=== PATIENT | female | born 1995 | race Caucasian/White ===

== ENCOUNTER → 2020-10-18 14:24 | Outpatient (BNVA) | payer MEDICAID, SELFPAY | PROVIDERS: PCP Registered Nurse Community Health; Visit Provider Advanced Practice Midwife | DX: Z03.73 Encounter for suspected fetal anomaly ruled out (principal); N92.6 Irregular menstruation, unspecified | CPT/HCPCS: 81025; 99202 ==

== ENCOUNTER 2020-10-22 10:10 | Outpatient (REF) | payer MEDICAID, SELFPAY ==
--- NOTE | 2020-10-22 10:15 | US_ITS ---
EXAMINATION: US OBSTETRICAL CLINICAL INFORMATION: 25-year-old at 19.0 weeks of gestation Suspected anomaly Unknown LMP BMI: 38.5 COMPARISON: None in this TECHNIQUE: Real-time transabdominal ultrasound was performed using C1-5 megahertz transducer. FINDINGS: A single, active, fetus is seen in transverse presentation. The placenta is posterior without previa, and the amniotic fluid volume is wnl. MEASUREMENTS: 1. Biparietal Diameter: 4.1 cm; 18.3 wks 2. Occipital Frontal Diameter: 5.8 cm 3. Head Circumference: 16.0 cm; 18.6 wks 4. Abdominal Circumference: 13.3 cm; 18.6 wks 5. Femur Length: 3.1 cm; 19.5 wks 6. Humerus Length: 3.1 cm; 20.3 wks 7. Tibia Length: 2.6 cm; 19.1 wks 8. Ulna Length: 2.98 cm; 21.1 wks 9. Lateral ventricle: 0.83 cm 10. Cerebellum: 2.0 cm; 20.5 wks 11. Cisterna Magna: 0.25 cm 12. Nuchal Fold: 4.0 mm 13. Heart Rate: 150 beats per minute Rt ovary: normal Lt ovary: normal Cervical length 3.6 cm on T/A. GESTATIONAL AGE: 1. Established GA: N/A wks 2. GA from [facility]: 19.0 wks ESTIMATED DATE OF DELIVERY: 1. Established CESAR: N/A 2. CESAR from [facility]: 03/18/2021 ANATOMY: The anatomic survey was incomplete due to position. Views of the placental cord insertion, four-chamber view, ventricular septum, LVOT, 3 vessel trachea, spine were suboptimal. The visualized anatomy includes but not limited to: 1. Cranium: Normal 2. Intracranial anatomy: cavum septum pellucidi, lateral ventricles, choroid plexus, cerebellum, posterior fossa, third and fourth ventricles. 3. face: orbits, lip/palate, profile, nasal bone 4. Heart: Limited cardiac anatomy due to position. The views of RVOT, aortic and ductal arches, situs and diaphragm are within normal limits. 5. Diaphragm: Normal 6. Abdominal wall: Normal 7. Cord Insertion: Normal 8. Spine: Unable to visualize due to position 9. Stomach: Normal size and shape 10. Right Kidney: Normal 11. Left Kidney: Normal 12. 3 vessel cord: Normal 13. Upper extremity: Open hands, fifth digit. 14. Lower extremity: Tibia, fibula, bilateral feet. 15. Bladder: Normal 16. Genitalia: Female, patient aware US/US OB /maternal detail IMPRESSION: 1. Single, active fetus with biometry consistent with 19.0 weeks of gestation. The best CESAR is 03/18/2021 based on today's exam. 2. Limited anatomy due to position as noted above. No abnormalities were seen in visualized anatomy. DISCUSSION: I reviewed today's ultrasound findings. We discussed the limitations of ultrasound in diagnosing aneuploidy and other congenital abnormalities. I reviewed the differences between screening test and diagnostic test. Amniocentesis was discussed and declined. She was informed that the baseline incidence of congenital abnormalities is approximately 3-5%. Not all these conditions are diagnosable in utero. Serum aneuploidy screening was offered and accepted. The blood sample was drawn today. RECOMMENDATIONS: 1. Follow-up in 3 weeks (scheduled). Thank you for allowing me to participate in her care. Visiting time 20 minutes. Majority of this visit was spent reviewing and discussing her care.
== END 2020-10-22 10:11 | disposition home or self-care (01) ==
LOC: HO.US 10:10
PROVIDERS: PCP Registered Nurse Community Health; Visit Provider Advanced Practice Midwife
DX: Z36.3 Encounter for antenatal screening for malformations (principal); N92.6 Irregular menstruation, unspecified; R10.2 Pelvic and perineal pain
CPT/HCPCS: 76811

== ENCOUNTER → 2020-10-25 14:00 | Outpatient (BNVA) | payer MEDICAID, SELFPAY | PROVIDERS: Visit Provider Advanced Practice Midwife | DX: Z76.89 Persons encountering health services in other specified circumstances (principal) | CPT/HCPCS: 99212 ==

== ENCOUNTER 2020-11-08 08:48 | Outpatient (REF) | payer MEDICAID, SELFPAY ==
[2020-11-08 13:11] LABS: Basophils Percent Auto 0.2 % (0-2); Eosinophils Absolute Auto 0.1 X10*3/uL (0.0-0.4); Eosinophils Percent Auto 1.2 % (0-4); Hematocrit 33.8 % (37-47); Imm Gran Abs Auto 0.03 X10*3/uL (0.00-0.03); Imm Gran Pct Auto 0.5 % (0.0-0.4); Lymphocytes Absolute Auto 1.2 X10*3/uL (1.2-4.9); Lymphocytes Percent Auto 18.5 % (20-40); Mean Corpuscular HGB Conc 32.5 g/dl (31.0-35.0); Mean Corpuscular Hemoglobin 29.3 pg (27.0-33.0); Mean Corpuscular Volume 89.9 fL (80-98); Mean Platelet Volume 11.2 fL (9.4-12.3); Monocytes Absolute Auto 0.4 X10*3/uL (0.1-1.2); Monocytes Percent Auto 6.1 % (2-11); Neutrophils Absolute Auto 4.8 X10*3/uL (2.0-8.3); Neutrophils Percent Auto 73.5 % (45-73); Platelet Count 292 X10*3/uL (160-400); Red Blood Count 3.76 X10*6/uL (4.20-5.50); Red Cell Distribution Width 13.6 % (11.0-16.0); White Blood Count 6.6 X10*3/uL (4.8-10.8)
[2020-11-08 13:12] LABS: MANUAL DIFF FLAG NO
[2020-11-08 14:04] LABS: Glucose 1 Hour PP 50gm Dose 90 mg/dL (60-140)
[2020-11-08 14:11] LABS: Syphilis Screen Nonreactive (Nonreactive)
[2020-11-08 18:22] LABS: Amphetamine Screen Urine Not Detected (Not Detect); Barbiturates, Urine Not Detected (Not Detect); Benzodiazepines Screen Urine Not Detected (Not Detect); Cannabinoid Screen Urine Not Detected (Not Detect); Cocaine Screen Urine Not Detected (Not Detect); Opiate Screen Urine Not Detected (Not Detect); Phencyclidine Screen Urine Not Detected (Not Detect)
[2020-11-09 09:06] LABS: Rubella IgG Antibody 0.93 Index
[2020-11-09 09:11] LABS: Hepatitis B Surface Antigen Negative (Negative); ~HepC Num1 0.07 S/CO (0.00-0.79); ~Hepatitis C Antibody Nonreactive (Nonreactive)
[2020-11-09 09:22] LABS: HIV AB/AG Nonreactive (Nonreactive); HIV Num 1 0.37 S/CO (0.00-0.99)
[2020-11-09 09:38] LABS: BV Int Neg Control Negative (Negative); BV Int Pos Control Positive (Positive)
[2020-11-09 12:57] LABS: C. trachomatis RNA TMA NOT DETECTED (NOT DETECTED); N. gonorrhoeae RNA TMA NOT DETECTED (NOT DETECTED)
[2020-11-27 03:13] LABS: HPV 16 RNA NOT DETECTED (NOT DETECTED); HPV mRNA E6/E7 rflx Detected (Not Detected)
== END 2020-11-08 08:49 | disposition home or self-care (01) ==
LOC: HO.LAB 08:48
PROVIDERS: Advanced Practice Midwife; Visit Provider Advanced Practice Midwife
DX: O34.219 Maternal care for unspecified type scar from previous cesarean delivery (principal); Z3A.26 26 weeks gestation of pregnancy; Z87.891 Personal history of nicotine dependence
CPT/HCPCS: 36415; 80307; 81003; 85025; 86762; 86780; 86787; 86803; 86850; 86900; 86901; 87086; 87340; 87389; 87480; 87491; 87510; 87591; 87624; 87625; 87660; 88141; 88142; 99212

== ENCOUNTER 2020-11-12 09:48 | Outpatient (REF) | payer MEDICAID, SELFPAY ==
--- NOTE | 2020-11-12 | US_ITS ---
EXAMINATION: US OBSTETRICAL CLINICAL INFORMATION: 25-year-old at 22.0 weeks of gestation Incomplete survey BMI 38.5 COMPARISON: 10/22/2020 TECHNIQUE: Real-time transabdominal ultrasound was performed using C1-5 megahertz transducer. FINDINGS: A single, active, fetus is seen in vertex presentation. The placenta is posterior without previa, and the amniotic fluid volume is wnl. MEASUREMENTS: 1. Biparietal Diameter: 4.7 cm; 20.3 wks 2. Occipital Frontal Diameter: 6.8 cm 3. Head Circumference: 18.9 cm; 21.2 wks 4. Abdominal Circumference: 17.6 cm; 22.4 wks 5. Femur Length: 4.0 cm; 23.0 wks 6. Humerus Length: 3.8 cm; 23.3 wks 7. Tibia Length: 3.5 cm; 23.1 wks 8. Ulna Length: 3.5 cm; 23.3 wks 9. Lateral ventricle: 0.73 cm 10. Cerebellum: 2. cm; 21.6 wks 11. Cisterna Magna: 0.6 cm 12. Nuchal Fold: N/A mm 13. Heart Rate: 150 beats per minute Rt ovary: normal Lt ovary: normal Cervical length 4.7 cm on T/A. GESTATIONAL AGE: 1. Established GA: 22.0 wks 2. GA from [facility]: 21.6 wks ESTIMATED DATE OF DELIVERY: 1. Established CESAR: 03/18/2021 2. CESAR from [facility]: 03/19/2021 ANATOMY: The visualized anatomy includes but not limited to: 1. Cranium: Normal 2. Intracranial anatomy: cavum septum pellucidi, lateral ventricles, choroid plexus, cerebellum, posterior fossa, third and fourth ventricles. 3. face: orbits, lip/palate, profile, nasal bone 4. Heart: four-chamber view of the heart, ventricular septum, foramen ovale, pulmonary vein, left and right outflow tracts, three-vessel view, 3 vessel trachea view, aortic and ductal arches, situs.. 5. Diaphragm: Normal 6. Abdominal wall: Normal 7. Cord Insertion: Normal 8. Spine: Cervical, thoracic, lumbar, sacral. 9. Stomach: Normal size and shape 10. Right Kidney: Normal 11. Left Kidney: Normal 12. 3 vessel cord: Normal 13. Upper extremity: Open hands, fifth digit. 14. Lower extremity: Tibia, fibula, bilateral feet. 15. Bladder: Normal 16. Genitalia: Female, patient aware US/US OB /maternal detail IMPRESSION: 1. Single, living, intrauterine with appropriate biometry. 2. Normal survey DISCUSSION: I reviewed today's ultrasound findings. We discussed the limitations of ultrasound in diagnosing aneuploidy and other congenital abnormalities. I reviewed the differences between screening test and diagnostic test. Amniocentesis was discussed and declined. RECOMMENDATIONS: No further ultrasound has been scheduled. Thank you for allowing me to participate in her care.
== END 2020-11-12 09:49 | disposition home or self-care (01) ==
LOC: HO.US 09:48
PROVIDERS: Visit Provider Advanced Practice Midwife
DX: O35.9XX0 Maternal care for (suspected) fetal abnormality and damage, unspecified, not applicable or unspecified (principal); Z3A.22 22 weeks gestation of pregnancy
CPT/HCPCS: 76811

== ENCOUNTER → 2020-12-06 09:13 | Outpatient (BNVA) | payer MEDICAID, SELFPAY | PROVIDERS: Visit Provider Obstetrics & Gynecology | DX: Z34.90 Encounter for supervision of normal pregnancy, unspecified, unspecified trimester (principal) | CPT/HCPCS: 81003; 99212 ==

== ENCOUNTER → 2020-12-24 15:34 | Outpatient (BNVA) | payer MEDICAID, SELFPAY | PROVIDERS: Visit Provider Obstetrics & Gynecology | DX: Z34.90 Encounter for supervision of normal pregnancy, unspecified, unspecified trimester (principal) | CPT/HCPCS: 99212 ==

== ENCOUNTER 2021-01-04 09:19 | Outpatient (REF) | payer MEDICAID, SELFPAY ==
[2021-01-04 10:00] LABS: MANUAL DIFF FLAG NO
[2021-01-04 10:06] LABS: Basophils Percent Auto 0.2 % (0-2); Eosinophils Absolute Auto 0.1 X10*3/uL (0.0-0.4); Eosinophils Percent Auto 1.2 % (0-4); Hematocrit 33.1 % (37-47); Hemoglobin 10.8 g/dl (12.0-16.0); Imm Gran Abs Auto 0.01 X10*3/uL (0.00-0.03); Imm Gran Pct Auto 0.2 % (0.0-0.4); Lymphocytes Absolute Auto 1.1 X10*3/uL (1.2-4.9); Lymphocytes Percent Auto 19.7 % (20-40); Mean Corpuscular HGB Conc 32.6 g/dl (31.0-35.0); Mean Platelet Volume 11.1 fL (9.4-12.3); Monocytes Absolute Auto 0.4 X10*3/uL (0.1-1.2); Monocytes Percent Auto 7.6 % (2-11); Neutrophils Percent Auto 71.1 % (45-73); Platelet Count 264 X10*3/uL (160-400); Red Blood Count 3.72 X10*6/uL (4.20-5.50); Red Cell Distribution Width 13.3 % (11.0-16.0); White Blood Count 5.7 X10*3/uL (4.8-10.8)
[2021-01-05 08:31] LABS: Syphilis Screen Nonreactive (Nonreactive)
[2021-01-05 20:37] LABS: C. trachomatis RNA TMA NOT DETECTED (NOT DETECTED); N. gonorrhoeae RNA TMA NOT DETECTED (NOT DETECTED)
== END 2021-01-04 09:20 | disposition home or self-care (01) ==
LOC: HO.LAB 09:19
PROVIDERS: Visit Provider Obstetrics & Gynecology
DX: Z34.83 Encounter for supervision of other normal pregnancy, third trimester (principal); Z11.3 Encounter for screening for infections with a predominantly sexual mode of transmission
CPT/HCPCS: 36415; 85025; 86780; 87086; 87491; 87591

== ENCOUNTER → 2021-01-28 10:20 | Outpatient (BNVA) | payer MEDICAID, SELFPAY | PROVIDERS: Visit Provider Obstetrics & Gynecology | DX: Z34.90 Encounter for supervision of normal pregnancy, unspecified, unspecified trimester (principal); Z3A.33 33 weeks gestation of pregnancy | CPT/HCPCS: 81003; 90471; 90715; 99212 ==

== ENCOUNTER 2021-02-18 15:00 | Outpatient (REF) | payer MEDICAID, SELFPAY ==
[2021-02-19 03:29] LABS: CT PCR NOT DETECTED (Not Detect.); NG PCR NOT DETECTED (Not Detect.)
== END 2021-02-18 15:01 | disposition home or self-care (01) ==
LOC: HO.LAB 15:00
PROVIDERS: Visit Provider Advanced Practice Midwife
DX: O09.292 Supervision of pregnancy with other poor reproductive or obstetric history, second trimester (principal); O34.219 Maternal care for unspecified type scar from previous cesarean delivery; Z86.32 Personal history of gestational diabetes
CPT/HCPCS: 81003; 87081; 87491; 87591; 99212

== ENCOUNTER 2021-02-22 10:39 | Outpatient (REF) | payer MEDICAID, SELFPAY ==
[2021-02-22 13:40] LABS: Glucose 1 Hour 113 mg/dL
== END 2021-02-22 10:40 | disposition home or self-care (01) ==
LOC: HO.LAB 10:39
PROVIDERS: Obstetrics & Gynecology; Absent Provider Advanced Practice Midwife; PCP Registered Nurse Community Health; Visit Provider Advanced Practice Midwife
DX: Z34.83 Encounter for supervision of other normal pregnancy, third trimester (principal)
CPT/HCPCS: 36415; 82951

== ENCOUNTER → 2021-03-01 10:50 | Outpatient (BNVA) | payer MEDICAID, SELFPAY | PROVIDERS: PCP Registered Nurse Community Health; Visit Provider Obstetrics & Gynecology | DX: Z34.93 Encounter for supervision of normal pregnancy, unspecified, third trimester (principal); Z3A.37 37 weeks gestation of pregnancy | CPT/HCPCS: 99212 ==

== ENCOUNTER → 2021-03-07 10:45 | Outpatient (BNVA) | payer MEDICAID, SELFPAY | PROVIDERS: Visit Provider Obstetrics & Gynecology | DX: Z13.89 Encounter for screening for other disorder (principal) | CPT/HCPCS: 99212 ==

== ENCOUNTER → 2021-03-21 14:48 | Outpatient (BNVA) | payer MEDICAID, SELFPAY | PROVIDERS: Visit Provider Obstetrics & Gynecology | DX: Z13.89 Encounter for screening for other disorder (principal) | CPT/HCPCS: 99212 ==

== ENCOUNTER 2021-04-20 10:23 | Outpatient (REF) | payer MEDICAID, SELFPAY | END 2021-04-20 10:24 | disposition home or self-care (01) | LOC: HO.LAB 10:23 | PROVIDERS: Visit Provider Obstetrics & Gynecology | DX: R87.610 Atypical squamous cells of undetermined significance on cytologic smear of cervix (ASC-US) (principal); R87.810 Cervical high risk human papillomavirus (HPV) DNA test positive | CPT/HCPCS: 57456; 88305; 99212 ==

== ENCOUNTER → 2021-04-27 10:43 | Outpatient (BNVA) | payer MEDICAID, SELFPAY | PROVIDERS: Visit Provider Obstetrics & Gynecology ==

== ENCOUNTER 2023-09-22 06:06 | Emergency (ER) | payer MEDICAID, SELFPAY ==
--- NOTE | ~2023-09-22 | US_ITS ---
EXAMINATION:US OB pelvic and transvaginal CLINICAL INFORMATION: Reason for Exam left pelvic pain, +, concerned for pregnan COMPARISON: No priors available. LMP: 08/11/2023 FINDINGS: UTERUS: The uterus is anteverted. Size: 6 x 4.5 x 5.7 cm. Uterine mass: There is no uterine mass. Cervix: There are nabothian cysts otherwise Grossly unremarkable. Endometrium: No ultrasound evidence of endometrial lesion. endometrial thickness measures no intrauterine gestational sac found. ADNEXA: Normal Right ovary: Normal in size. Small cystic structures probably corpus luteal cyst 1.8 x 1.3 x 2.2 cm and 3.2 x 2.3 x 2.5 cm. Left ovary: Normal in size. Doppler exam: Normal Doppler flow identified in both ovaries. FREE FLUID: Trace amount of free fluid. OTHER FINDINGS: None US/US pelvic ovarian doppler IMPRESSION: 1. No intrauterine is identified at this time. Correlation with beta hCG levels is recommended, as nonvisualization of a gestational sac could be due to an early stage of . Alternatively, lack of an intrauterine gestational sac may also be seen with missed or ectopic , although no adnexal mass is seen to strongly suggest ectopic . Short-term sonographic follow-up and serial beta hCG levels are recommended to assess for development of an intrauterine gestational sac. 2. There are fluid-filled cystic structures in the left ovary probably corpus luteal cysts the largest measure up to 3.2 cm.
--- NOTE | ~2023-09-22 | US_ITS ---
EXAMINATION:US OB pelvic and transvaginal CLINICAL INFORMATION: Reason for Exam left pelvic pain, +, concerned for pregnan COMPARISON: No priors available. LMP: 08/11/2023 FINDINGS: UTERUS: The uterus is anteverted. Size: 6 x 4.5 x 5.7 cm. Uterine mass: There is no uterine mass. Cervix: There are nabothian cysts otherwise Grossly unremarkable. Endometrium: No ultrasound evidence of endometrial lesion. endometrial thickness measures no intrauterine gestational sac found. ADNEXA: Normal Right ovary: Normal in size. Small cystic structures probably corpus luteal cyst 1.8 x 1.3 x 2.2 cm and 3.2 x 2.3 x 2.5 cm. Left ovary: Normal in size. Doppler exam: Normal Doppler flow identified in both ovaries. FREE FLUID: Trace amount of free fluid. OTHER FINDINGS: None US/US OB pelvic and transvaginal IMPRESSION: 1. No intrauterine is identified at this time. Correlation with beta hCG levels is recommended, as nonvisualization of a gestational sac could be due to an early stage of . Alternatively, lack of an intrauterine gestational sac may also be seen with missed or ectopic , although no adnexal mass is seen to strongly suggest ectopic . Short-term sonographic follow-up and serial beta hCG levels are recommended to assess for development of an intrauterine gestational sac. 2. There are fluid-filled cystic structures in the left ovary probably corpus luteal cysts the largest measure up to 3.2 cm.
[2023-09-22 06:14] VITALS: BP 120/50; PULSE 77; RESP 18; TEMP 36.6; O2SAT 100; BMI 41.0
--- NOTE | 2023-09-22 06:53 | MHC.EDTECH ---
Patient brought in from waiting area, labs were obtained and sent to lab. Patient attempted to give a urine sample but was unable to at this time.
[2023-09-22 07:03] LABS: MANUAL DIFF FLAG NO
[2023-09-22 07:12] LABS: Basophils Percent Auto 0.4 % (0-2); Eosinophils Absolute Auto 0.1 X10*3/uL (0.0-0.4); Eosinophils Percent Auto 2.5 % (0-4); Hematocrit 30.3 % (37.0-47.0); Hemoglobin 8.6 g/dl (12.0-16.0); Imm Gran Abs Auto 0.01 X10*3/uL (0.00-0.03); Imm Gran Pct Auto 0.2 % (0.0-0.4); Lymphocytes Absolute Auto 1.1 X10*3/uL (1.2-4.9); Lymphocytes Percent Auto 21.6 % (20-40); Mean Corpuscular HGB Conc 28.4 g/dl (31.0-35.0); Mean Corpuscular Hemoglobin 20.5 pg (27.0-33.0); Mean Corpuscular Volume 72.1 fL (80.0-98.0); Mean Platelet Volume 10.2 fL (9.4-12.3); Monocytes Absolute Auto 0.3 X10*3/uL (0.1-1.2); Monocytes Percent Auto 6.3 % (2-11); Neutrophils Absolute Auto 3.5 x10*3/uL (2.0-8.3); Platelet Count 438 X10*3/uL (160-400); Red Cell Distribution Width 16.3 % (11.0-16.0); White Blood Count 5.1 X10*3/uL (4.8-10.8)
[2023-09-22 07:23] LABS: Alanine Aminotransferase 18 U/L (0-31); Albumin Level 3.9 g/dL (3.5-5.0); Alkaline Phosphatase 62 U/L (39-117); Anion Gap 11 (12-20); Aspartate Amino Transferase 17 U/L (5-31); Bilirubin Total 0.2 mg/dL (0.0-1.0); Blood Urea Nitrogen 8 mg/dL (9-16); Carbon Dioxide 21 mmol/L (22-29); Chloride 110 mmol/L (96-108); Creatinine Clr Calc Pharmacy 142.8; Estimated Glomerular Filt Rate > 60; Glucose Random 101 mg/dL (60-115); Potassium 3.8 mmol/L (3.3-5.1); Sodium 138 mmol/L (135-145); Total Protein 7.5 g/dL (6.5-8.0)
--- NOTE | 2023-09-22 07:34 | ED.ABDPAIN ---
HPI - Abdominal Pain General Chief Complaint: Abdominal Pain Stated Complaint: Abdominal Pain Time Seen by Provider: 09/22/23 07:24 Source: patient Mode of arrival: ambulatory Limitations: no limitations History of Present Illness HPI narrative: 28 YO female with a history of iron deficiency anemia presents to the ER with complaints of lower abdominal pain for the last 2 hours with no associated nausea, vomiting, diarrhea, urinary symptoms, fevers or chills. Last menstrual cycle was 1 month ago. Patient reports she is due for her menses this week. She does have a history of heavy and painful menses. She is sexually active. She is not on contraception. Related Data Home Medications Medication Instructions Recorded Confirmed vits-iron 27 mg-folic ac pkg PO 10/25/20 10/25/20 1 mg-om3 312 mg-dha 250 mg oral pack ( Plus DHA) Previous Rx's Medication Instructions Recorded ferrous sulfate 325 mg (65 mg 325 mg PO BID #60 tabs 01/07/21 iron) tablet,delayed release diphth,pertus(acell),tetanus 2.5 0.5 ml IM ONCE #0.5 mL 01/28/21 Lf unit-8 mcg-5 Lf/0.5 mL IM susp (Boostrix Tdap) ferrous sulfate 325 mg (65 mg 325 mg PO DAILY #30 tabs 09/22/23 iron) tablet Allergies Allergy/AdvReac Type Severity Reaction Status Date / Time No Known Allergies Allergy Verified 09/22/23 06:17 [No Known Allergies*] Review of Systems Review of Systems Yes all other systems are reviewed and are negative Constitutional: Reports no additional constitutional complaints, Denies body ache(s), Denies chills, Denies fever(s), Denies headache(s) and Denies weakness Eyes: Reports no additional eye complaints and Denies change in vision Reports system reviewed and no additional complaints, except as documented, Denies dizziness, Denies headache(s), Denies nasal congestion, Denies nasal discharge and Denies neck pain Cardiovascular: Reports no additional cardiovascular complaints, Denies chest pain, Denies leg edema and Denies dyspnea Respiratory: Reports no additional respiratory complaints, Denies cough and Denies dyspnea Gastrointestinal: Reports no additional gastrointestinal complaints, Reports abdominal pain, Denies diarrhea, Denies nausea and Denies vomiting Genitourinary: Reports no additional female genitourinary complaints and Denies urinary incontinence Musculoskeletal: Reports no additional musculoskeletal complaints, Denies back pain, Denies arthralgias, Denies joint swelling, Denies neck pain, Denies numbness and Denies tingling Skin/Breast: Reports system reviewed and no additional complaints, except as docu and Denies rash Reports system reviewed and no additional complaints, except as documented, Denies Abnormal speech present, Denies dizziness, Denies headache(s), Denies numbness, Denies tingling and Denies weakness PMF Past Medical History Attestation statement: The following information was validated with the patient. Source: old records reviewed and nursing notes reviewed Medical History Cervical cancer screening Initial obstetric visit Hx of gestational diabetes in prior , currently Surgical History Hx of removal of neck cyst History of Family History Family History Mother Hx of osteoporosis Father No problems noted. Maternal Grandmother No problems noted. Maternal Grandfather No problems noted. Maternal Grandmother No problems noted. Paternal Grandfather No problems noted. Social History Social History Household Members: Significant Other and Family Alcohol intake: current Alcohol intake frequency: a few times a week Smoked in Last 30 Days: No Substance Use Type: Marijuana Advance Directives: No Advance Directives Information Provided: Yes service: No Current occupational status: unemployed Current occupational exposures/hazards: No Physical Exam ED Vital Signs: Vital Signs - 24 hr 09/22/23 06:14 09/22/23 11:21 09/22/23 11:23 Temperature 97.9 F Pulse Rate 77 69 71 Respiratory Rate 18 16 16 Blood Pressure 120/50 L 121/54 L 121/54 L Pulse Oximetry 100 98 100 Oxygen Delivery Method Room Air Room Air Room Air 09/22/23 12:09 Temperature 98.4 F Pulse Rate 75 Respiratory Rate 18 Blood Pressure 112/51 L Pulse Oximetry 97 Oxygen Delivery Method Room Air BMI result Body Mass Index 41.0 Const General: cooperative, healthy appearing, comfortable and no acute distress Orientation/consciousness: patient oriented x3 Limitations: no limitations HENMT Head: Yes normal to inspection Ears: hearing grossly normal bilaterally General nose exam: Normal external nose present Face and sinus: Yes normal facial exam Mouth: Normal oral and palatal mucosa present Throat: Yes posterior oropharynx normal Eyes General: appearance normal, both eyes and all related structures Pupils: Equal, round and reactive pupils present Neck Neck: Yes normal visual inspection Chest Chest palpation & inspection: normal inspection of the chest Resp Effort & Inspection: normal respiratory effort Auscultation: clear to auscultation bilaterally Cardio Rate: regular rate Rhythm: regular rhythm Peripheral pulses: Peripheral pulses 2+ throughout GI Inspection: Yes normal to inspection Palpation (GI): Soft to palpation and Tenderness to palpation present (GI) (LLQ-no rebound or guarding ) Auscultation: normal bowel sounds Back/Spine/Pelvis Thoracic/Lumbar Spine: thoracic and lumbar spine normal to inspection Skin General skin exam: no rashes or lesions noted Neuro General: patient oriented x3, no focal motor deficits and normal sensation to monofilament Cranial nerves: Yes Equal, round and reactive pupils present Cognition (Neuro): normal cognition Speech: No Abnormal speech present Gait exam (Neuro): Normal gait present Motor exam (neuro): 5/5 motor strength present throughout Extrem General: Yes normal to inspection Course Course Course Narrative: 816-+Urine , Quant 156. Consider ectopic . Type and screen ordered. Bedside ultrasound done with Dr. Sutherland does not show any large amount of free fluid. A formal ultrasound was ordered to evaluate to r/o ectopic Reevaluation(s) Reevaluation #1: Patient seen by OB and given strict return precautions. Will follow up on Sunday. Reviewed worrisome signs and symptoms of when to return to the emergency room. Comfortable plan for discharge home. Medical Decision Making Medical Decision Making [facility] Narrative: 28 YO female with a history of iron deficiency anemia presents to the ER with complaints of lower abdominal pain for the last 2 hours with no associated nausea, vomiting, diarrhea, urinary symptoms, fevers or chills.? Last menstrual cycle was 1 month ago.? Patient reports she is due for her menses this week.? She does have a history of heavy and painful menses.? She is sexually active.? She is not on contraception. +LLQ abdominal pain with TTP with no revound or guarding VSS Will obtain labs, UA, ur preg Provide analgesia, antiemetic Differential Diagnosis Differential Diagnoses: The differential diagnosis associated with the presentation includes ectopic divert appendicitis UTI renal colic pyelo Admission/Observation Consideration of admission/observation: Escalation of care including admission/observation considered Consult Healthcare Provider Management of the patient was discussed with: Analytical Engineer 1130-I spoke to Dr. Elisha bobo from OBGYN. Patient has an ultrasound which shows no intrauterine , there is no adnexal mass noted. Patient's beta quant is 156. Her urine is positive. It may be that the patient has an early , miscarriage, and/or ectopic . [facility] REPAIRER will come and evaluate the patient -patient seen by Dr. Tello at the bedside. He performed a pelvic exam on her. Swabs will be sent. Plan for follow-up on Sunday for repeat hCG level and follow up outpatient with Ob. Lab Data MDM Lab Attestation statement: I reviewed the patient's lab results. 09/22/23 11:32 09/22/23 06:57 Labs: Lab Results 09/22/23 09/22/23 09/22/23 Range/Units 06:57 07:50 10:47 WBC 5.1 (4.8-10.8) X10*3/uL RBC 4.20 (4.20-5.50) X10*6/uL Hgb 8.6 L (12.0-16.0) g/dl Hct 30.3 L (37.0-47.0) % MCV 72.1 L (80.0-98.0) fL MCH 20.5 L (27.0-33.0) pg MCHC 28.4 L (31.0-35.0) g/dl RDW 16.3 H (11.0-16.0) % Plt Count 438 H (160-400) X10*3/uL MPV 10.2 (9.4-12.3) fL Immature Gran % (Auto) 0.2 (0.0-0.4) % Neut % (Auto) 69.0 (45-73) % Lymph % (Auto) 21.6 (20-40) % [place] % (Auto) 6.3 (2-11) % Eos % (Auto) 2.5 (0-4) % Baso % (Auto) 0.4 (0-2) % Lymph # (Auto) 1.1 L (1.2-4.9) X10*3/uL [place] # (Auto) 0.3 (0.1-1.2) X10*3/uL Eos # (Auto) 0.1 (0.0-0.4) X10*3/uL Baso # (Auto) 0.0 (0.0-0.2) X10*3/uL Abs Immat Gran (auto) 0.01 (0.00-0.03) X10*3/uL Absolute Neuts (auto) 3.5 (2.0-8.3) x10*3/uL Absolute Nucleated RBC 0.000 (0.0-0.012) X10*3/uL Nucleated RBC % (auto) 0.0 (0.0-0.2) /100WBC Sodium 138 (135-145) mmol/L Potassium 3.8 (3.3-5.1) mmol/L Chloride 110 H (96-108) mmol/L Carbon Dioxide 21 L (22-29) mmol/L Anion Gap 11 L (12-20) BUN 8 L (9-16) mg/dL Creatinine 0.60 (0.5-1.4) mg/dL Estim Creat Clear Calc 142.8 Estimated GFR > 60 Random Glucose 101 (60-115) mg/dL Calcium 9.0 (8.4-10.2) mg/dL Total Bilirubin 0.2 (0.0-1.0) mg/dL AST 17 (5-31) U/L ALT 18 (0-31) U/L Alkaline Phosphatase 62 (39-117) U/L Total Protein 7.5 (6.5-8.0) g/dL Albumin 3.9 (3.5-5.0) g/dL Lipase 22 (8-78) U/L Beta HCG, Quant 156 mIU/mL Urine Color Yellow Urine Appearance Clear Urine pH 6.5 (5.0-9.0) Ur Specific [place] 1.025 (1.005-1.025) Urine Protein Negative (Neg-Trace) mg/dL Urine Glucose (UA) Negative (Negative) mg/dL Urine Ketones Negative (Negative) mg/dL Urine Blood Negative (Negative) Urine Nitrite Negative (Negative) Ur Leukocyte Esterase Negative (Negative) Urine RBC 0-2 (0-2) /HPF Urine WBC 0-5 (0-5) /HPF Ur Squamous Epith Cells 3-5 (0-2) /HPF Urine Bacteria None Seen (None Seen) Hyaline Casts 0-2 (0-2) /LPF Urine Test POSITIVE H (NEGATIVE) Blood Type O Positive Antibody Screen NEGATIVE 09/22/23 Range/Units 11:32 WBC 6.9 (4.8-10.8) X10*3/uL RBC 4.03 L (4.20-5.50) X10*6/uL Hgb 8.3 L (12.0-16.0) g/dl Hct 29.3 L (37.0-47.0) % MCV 72.7 L (80.0-98.0) fL MCH 20.6 L (27.0-33.0) pg MCHC 28.3 L (31.0-35.0) g/dl RDW 16.4 H (11.0-16.0) % Plt Count 411 H (160-400) X10*3/uL MPV 10.2 (9.4-12.3) fL Immature Gran % (Auto) 0.1 (0.0-0.4) % Neut % (Auto) 75.2 H (45-73) % Lymph % (Auto) 18.2 L (20-40) % [place] % (Auto) 5.0 (2-11) % Eos % (Auto) 1.2 (0-4) % Baso % (Auto) 0.3 (0-2) % Lymph # (Auto) 1.3 (1.2-4.9) X10*3/uL [place] # (Auto) 0.3 (0.1-1.2) X10*3/uL Eos # (Auto) 0.1 (0.0-0.4) X10*3/uL Baso # (Auto) 0.0 (0.0-0.2) X10*3/uL Abs Immat Gran (auto) 0.01 (0.00-0.03) X10*3/uL Absolute Neuts (auto) 5.2 (2.0-8.3) x10*3/uL Absolute Nucleated RBC 0.000 (0.0-0.012) X10*3/uL Nucleated RBC % (auto) 0.0 (0.0-0.2) /100WBC Sodium (135-145) mmol/L Potassium (3.3-5.1) mmol/L Chloride (96-108) mmol/L Carbon Dioxide (22-29) mmol/L Anion Gap (12-20) BUN (9-16) mg/dL Creatinine (0.5-1.4) mg/dL Estim Creat Clear Calc Estimated GFR Random Glucose (60-115) mg/dL Calcium (8.4-10.2) mg/dL Total Bilirubin (0.0-1.0) mg/dL AST (5-31) U/L ALT (0-31) U/L Alkaline Phosphatase (39-117) U/L Total Protein (6.5-8.0) g/dL Albumin (3.5-5.0) g/dL Lipase (8-78) U/L Beta HCG, Quant mIU/mL Urine Color Urine Appearance Urine pH (5.0-9.0) Ur Specific [place] (1.005-1.025) Urine Protein (Neg-Trace) mg/dL Urine Glucose (UA) (Negative) mg/dL Urine Ketones (Negative) mg/dL Urine Blood (Negative) Urine Nitrite (Negative) Ur Leukocyte Esterase (Negative) Urine RBC (0-2) /HPF Urine WBC (0-5) /HPF Ur Squamous Epith Cells (0-2) /HPF Urine Bacteria (None Seen) Hyaline Casts (0-2) /LPF Urine Test (NEGATIVE) Blood Type Antibody Screen Independent Interpretation I performed an independent interpretation of an: Ultrasound Interpretation: I independently reviewed the ultrasound agree with the radiology report Radiology Impression Discussion of test interpretation with radiology: I have reviewed the radiologist's reading. Radiologist Impression: [address] [id number] Ultrasound Report Signed Patient: Amy Sandoval MR#: [id number] : 1995 Acct:[id number] Age/Sex: 28 / F ADM Date: 09/22/23 Loc: .ED Attending Dr: Ordering Physician: Jennifer Peres NP Date of Service: 09/22/23 Procedure(s): US OB pelvic and transvaginal Accession Number(s): [id number] cc: Physician,Unknown ; Jennifer Peres DATA INTEGRITY SPECIALIST~ EXAMINATION:US OB pelvic and transvaginal CLINICAL INFORMATION: Reason for Exam left pelvic pain, +, concerned for pregnan COMPARISON: No priors available. LMP: 08/11/2023 FINDINGS: UTERUS: The uterus is anteverted. Size: 6 x 4.5 x 5.7 cm. Uterine mass: There is no uterine mass. Cervix: There are nabothian cysts otherwise Grossly unremarkable. Endometrium: No ultrasound evidence of endometrial lesion. endometrial thickness measures no intrauterine gestational sac found. ADNEXA: Normal Right ovary: Normal in size. Small cystic structures probably corpus luteal cyst 1.8 x 1.3 x 2.2 cm and 3.2 x 2.3 x 2.5 cm. Left ovary: Normal in size. Doppler exam: Normal Doppler flow identified in both ovaries. FREE FLUID: Trace amount of free fluid. OTHER FINDINGS: None US/US OB pelvic and transvaginal IMPRESSION: 1. No intrauterine is identified at this time. Correlation with beta hCG levels is recommended, as nonvisualization of a gestational sac could be due to an early stage of . Alternatively, lack of an intrauterine gestational sac may also be seen with missed or ectopic , although no adnexal mass is seen to strongly suggest ectopic . Short-term sonographic follow-up and serial beta hCG levels are recommended to assess for development of an intrauterine gestational sac. 2. There are fluid-filled cystic structures in the left ovary probably corpus luteal cysts the largest measure up to 3.2 cm. Medications Administered Discontinued Medications Generic Name Dose Route Start Last Admin Trade Name Flora PRN Reason Stop Dose Admin Morphine Sulfate 4 mg 09/22/23 07:48 09/22/23 08:00 Morphine Sulfate 4 Mg/Ml Cartridge IVPUSH 09/22/23 07:49 4 mg ONCE ONE Administration Protocol Ondansetron HCl 4 mg 09/22/23 07:48 09/22/23 08:00 Ondansetron Hcl 4 Mg/2 Ml Vial IVPUSH 09/22/23 07:49 4 mg ONCE ONE Administration Discharge Plan Discharge Clinical Impression: , UMAIR (iron deficiency anemia) Patient Disposition: Home, Self-Care Instructions: (ED), Iron Deficiency Anemia (ED) Additional Instructions: Your test was positive but we did not see any signs of with in your uterus. We are unsure if you have an early , have had a miscarriage, or have a outside of the uterus. You were seen by our OBGYN. It is recommended that you have a repeat hormone levels done on Sunday morning and you follow-up with them in the office on that day. In the meantime if you develop any severe pain, vaginal bleeding you need to return to the emergency room. Take the iron tablets as prescribed Prescriptions: New ferrous sulfate 325 mg (65 mg iron) tablet 325 mg PO DAILY Qty: 30 0RF No Action ferrous sulfate 325 mg (65 mg iron) tablet,delayed release (DR/EC) 325 mg PO BID Qty: 60 4RF Boostrix Tdap 2.5-8-5 Lf-mcg-Lf/0.5mL suspension 0.5 ml IM ONCE Qty: 0.5 0RF Plus DHA 27 mg iron-1 mg -312 mg-250 mg combo pack PO Interventions: ED Discharge Assessment Last Done: 09/22/23 12:30 Discharge Date/Time: 09/22/23 12:59
--- NOTE | 2023-09-22 07:49 | PC.NURSE ---
Patient alert and oriented, reports was using the bathroom this morning and felt a sudden sharp pain in her lower abdomen. Patient reports pain is currently a 4/10. Denies sob, chest pain, nausea, vomiting or diarrhea
[2023-09-22] MEDS: Morphine Sulfate 4 MG/ML CARTRIDGE IVPUSH (08:00)
[2023-09-22] MEDS: ondansetron HCL 4 MG/2 ML VIAL IVPUSH (08:00)
[2023-09-22 08:02] LABS: Lipase 22 U/L (8-78)
[2023-09-22 08:06] LABS: Appearance Urine Clear; Color Urine Yellow; Glucose Urine UA Negative (Negative); Leukocyte Esterase Urine Negative (Negative); Nitrite Urine Negative (Negative); PH 6.5 (5.0-9.0); Specific Gravity - Urine 1.025 (1.005-1.025); UPreg QC Valid YES; Urine Blood Negative (Negative); Urine Ketones Negative (Negative); Urine Pregnancy POSITIVE (NEGATIVE); Urine Protein Negative (Neg-Trace)
[2023-09-22 08:08] LABS: Bacteria Urine None Seen (None Seen); Hyaline Casts Urine 0-2 /LPF (0-2); RBC Urine 0-2 /HPF (0-2); WBC Urine 0-5 /HPF (0-5)
[2023-09-22 08:11] LABS: HCG Quantitative 156 mIU/mL
[2023-09-22 11:21] VITALS: BP 121/54; PULSE 69; RESP 16; O2SAT 98
[2023-09-22 11:23] VITALS: BP 121/54; PULSE 71; RESP 16; O2SAT 100
[2023-09-22 11:36] LABS: MANUAL DIFF FLAG NO
[2023-09-22 11:37] LABS: Basophils Percent Auto 0.3 % (0-2); Eosinophils Absolute Auto 0.1 X10*3/uL (0.0-0.4); Eosinophils Percent Auto 1.2 % (0-4); Hematocrit 29.3 % (37.0-47.0); Hemoglobin 8.3 g/dl (12.0-16.0); Imm Gran Abs Auto 0.01 X10*3/uL (0.00-0.03); Imm Gran Pct Auto 0.1 % (0.0-0.4); Lymphocytes Absolute Auto 1.3 X10*3/uL (1.2-4.9); Lymphocytes Percent Auto 18.2 % (20-40); Mean Corpuscular HGB Conc 28.3 g/dl (31.0-35.0); Mean Corpuscular Hemoglobin 20.6 pg (27.0-33.0); Mean Corpuscular Volume 72.7 fL (80.0-98.0); Mean Platelet Volume 10.2 fL (9.4-12.3); Monocytes Absolute Auto 0.3 X10*3/uL (0.1-1.2); Neutrophils Absolute Auto 5.2 x10*3/uL (2.0-8.3); Neutrophils Percent Auto 75.2 % (45-73); Platelet Count 411 X10*3/uL (160-400); Red Blood Count 4.03 X10*6/uL (4.20-5.50); Red Cell Distribution Width 16.4 % (11.0-16.0); White Blood Count 6.9 X10*3/uL (4.8-10.8)
--- NOTE | 2023-09-22 11:50 | P.CONOB_ITS ---
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 Last menstrual cycle was 1 month ago. No other concerns. In the emergency room urine test was positive, hCG is 156, blood type O positive. Pelvic Ultrasound done cc:: CC: OB PMF Past Medical History Medical History Cervical cancer screening Initial obstetric visit Hx of gestational diabetes in prior , currently Family History Family History Mother Hx of osteoporosis Father No problems noted. Maternal Grandmother No problems noted. Maternal Grandfather No problems noted. Maternal Grandmother No problems noted. Paternal Grandfather No problems noted. Surgical History Surgical History Hx of removal of neck cyst History of Social History Social History Household Members: Significant Other and Family Alcohol intake: current Alcohol intake frequency: a few times a week Smoked in Last 30 Days: No Substance Use Type: Marijuana Advance Directives: No Advance Directives Information Provided: Yes service: No Current occupational status: unemployed Current occupational exposures/hazards: No Meds Allergies Allergy/AdvReac Type Severity Reaction Status Date / Time No Known Allergies Allergy Verified 09/22/23 06:17 [No Known Allergies*] Home Medications Medication Instructions Recorded Confirmed Last Taken Type vits-iron 27 mg-folic ac pkg PO 10/25/20 10/25/20 Unknown History 1 mg-om3 312 mg-dha 250 mg oral pack ( Plus DHA) 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 Physical Exam Vitals Vital signs: Temp Pulse Resp BP Pulse Ox O2 Del Method 97.9 F 71 16 121/54 L 100 Room Air 09/22/23 06:14 09/22/23 11:23 09/22/23 11:23 09/22/23 11:23 09/22/23 11:23 11:23 BMI result Body Mass Index 41.0 Abdomen Auscultation/Inspection/Palpation: Soft, Non-distended and No tenderness Female Genitalia (Pelvic) Bladder/Urethra: Normal meatus Vulva: No lesions Vagina: Nontender Cervix: Grossly normal Uterus: Normal size Adnexa/Parametria: Adnexal Tenderness: None and Adnexal Mass: None MUSHROOM FARMER - Results Labs 09/22/23 11:32 09/22/23 06:57 Labs: Short CBC 09/22/23 09/22/23 Range/Units 06:57 11:32 WBC 5.1 6.9 (4.8-10.8) X10*3/uL Hgb 8.6 L 8.3 L (12.0-16.0) g/dl Hct 30.3 L 29.3 L (37.0-47.0) % Plt Count 438 H 411 H (160-400) X10*3/uL BMP 09/22/23 06:57 Sodium 138 Potassium 3.8 Chloride 110 H Carbon Dioxide 21 L BUN 8 L Creatinine 0.60 Calcium 9.0 Liver Function 09/22/23 Range/Units 06:57 Total Bilirubin 0.2 (0.0-1.0) mg/dL AST 17 (5-31) U/L ALT 18 (0-31) U/L Alkaline Phosphatase 62 (39-117) U/L Albumin 3.9 (3.5-5.0) g/dL Urine 09/22/23 Range/Units 07:50 Urine Color Yellow Urine Appearance Clear Urine pH 6.5 (5.0-9.0) Ur Specific [place] 1.025 (1.005-1.025) Urine Protein Negative (Neg-Trace) mg/dL Urine Glucose (UA) Negative (Negative) mg/dL Urine Test POSITIVE H (NEGATIVE) Antibody Screen Antibody Screen NEGATIVE 09/22/23 10:47 Assessment and Plan (1) Early stage of : Status: Acute GC/CT was BV panel and Trichomonas sent. Discussed with the patient the rate of level of HCG level is below the discriminatory zone to be able to see an intrauterine . The differential diagnosis discussed with the patient included either early ectopic versus early SAB with a small possibility of normal intrauterine gestation. Options of treatment were discussed with the patient includin- Expected management for the coming 48 hours and repeat HCG with or without pelvic Ultrasound. 2- Treat as if she has tubal with methotrexate or 3- Uterine aspiration. All the pros and cons and risks and benefits of each treatment approach were discussed with the patient. 1-The advantage of expectant management were discussed with the patient, being prevention of possible exposure to teratogenicity or risk of spontaneous in case of an early normal , the risk being delayed diagnosis and treatment of ectopic and possible rupture with all its possible consequences including intra-abdominal bleed and possible . 2- Explained to the patient that the use of curettage as a diagnostic tool is limited by the potential for disruption of a viable . In addition, discussed with the patient that the sensitivity of curettage in finding chorionic villi is only 70 percent. Pipelle endometrial biopsy is even less sensitive than curettage for detection of villi; sensitivities reported is between 30 and 60 percent. If curettage is performed, serum HCG levels can be followed postcurettage if histopathology does not confirm the clinical impression. When an IUP has been evacuated, hCG levels should drop by at least 15 percent the day after evacuation. There might be an advantage of performing aspiration only on patients with both an HCG concentration below the discriminatory zone and a low doubling rate, since 30 percent of these patients have a nonviable intrauterine gestation, and the remainder have an ectopic . Knowing the results of aspiration avoids unnecessary methotrexate treatment of the 30 percent of patients without ectopic . 3-Furthermore discussed with the patient the 3rd option which is treatment with methotrexate without uterine aspiration. The advantage of early treatment of presumed tubal with methotrexate was discussed with the patient, including but not limited to reducing the risk of ruptured ectopic with all its potential consequences, in addition discussed with the patient methotrexate treatment risks including but not limited to, possible exposure to methotrexate to a normal intra and and increase the risk of spontaneous and congenital anomalies. The patient decided to wait 48 hours repeat HCG and treat accordingly. Instructions given to the patient to the importance of compliance and timely HCG follow-up in 48 hours for an early and accurate diagnosis, and to call or go to the emergency room if pain or vaginal bleeding occurs, all questions answered, the patient verbalized understanding and agreed with the plan. Follow-up in 48 hours for further management.
[2023-09-22 12:09] VITALS: BP 112/51; PULSE 75; RESP 18; TEMP 36.9; O2SAT 97
[2023-09-22 14:49] LABS: CT PCR NOT DETECTED (Not Detect.); NG PCR NOT DETECTED (Not Detect.)
[2023-09-24 09:25] LABS: BV Int Neg Control Negative (Negative); BV Int Pos Control Positive (Positive)
== END 2023-09-22 12:59 | disposition home or self-care (01) ==
PROVIDERS: Nurse Practitioner Family; Emergency Provider Emergency Medicine
DX: N76.0 Acute vaginitis (principal); R10.30 Lower abdominal pain, unspecified; D50.9 Iron deficiency anemia, unspecified; Z33.1 Pregnant state, incidental
CPT/HCPCS: 0353U; 36415; 76801; 76817; 80053; 81001; 81025; 83690; 84702; 85025; 86850; 86900; 86901; 87480; 87510; 87660; 93975; 96374; 96375; 99284; J2270; J2405

== ENCOUNTER → 2023-09-22 07:27 | Outpatient (BNV) | payer MEDICAID, SELFPAY | PROVIDERS: Emergency Provider Emergency Medicine; Visit Provider Obstetrics & Gynecology | DX: Z34.90 Encounter for supervision of normal pregnancy, unspecified, unspecified trimester (principal) | CPT/HCPCS: 99283 ==

== ENCOUNTER 2023-09-24 08:49 | Outpatient (REF) | payer MEDICAID, SELFPAY ==
[2023-09-24 10:09] LABS: HCG Quantitative 480 mIU/mL
== END 2023-09-24 08:50 | disposition home or self-care (01) ==
LOC: HO.LAB 08:49
PROVIDERS: Visit Provider Obstetrics & Gynecology
DX: Z34.90 Encounter for supervision of normal pregnancy, unspecified, unspecified trimester (principal)
CPT/HCPCS: 36415; 84702; 99212

== ENCOUNTER 2023-09-24 11:21 | Outpatient (AMB) | payer MEDICAID, SELFPAY ==
--- NOTE | 2023-09-24 11:30 | MHC.OFFVIS ---
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 The patient presented to the ER 2 days ago with lower abdominal pain with no associated vaginal discharge or bleeding, no nausea/vomiting, no diarrhea, urinary symptoms, fevers or chills. Last menstrual cycle was 1 month ago. In the emergency room urine test was positive, hCG is 156, blood type O positive. Pelvic Ultrasound done and showed the following: IMPRESSION: 1. No intrauterine is identified at this time. Correlation with beta hCG levels is recommended, as nonvisualization of a gestational sac could be due to an early stage of . Alternatively, lack of an intrauterine gestational sac may also be seen with missed or ectopic , although no adnexal mass is seen to strongly suggest ectopic . Short-term sonographic follow-up and serial beta hCG levels are recommended to assess for development of an intrauterine gestational sac. 2. There are fluid-filled cystic structures in the left ovary probably corpus luteal cysts the largest measure up to 3.2 cm Since then the patient has been doing well with no complaints no pelvic pain and or vaginal bleeding. HCG repeat today went up to 480 PFSH Medical History Cervical cancer screening Initial obstetric visit Hx of gestational diabetes in prior , currently Surgical History Hx of removal of neck cyst History of Family History Mother Hx of osteoporosis Father No problems noted. Maternal Grandmother No problems noted. Maternal Grandfather No problems noted. Maternal Grandmother No problems noted. Paternal Grandfather No problems noted. Social History Household Members: Significant Other and Family Alcohol intake: current Alcohol intake frequency: a few times a week Substance Use Type: Marijuana service: No Current occupational status: unemployed Current occupational exposures/hazards: No Female Reproductive History Menstrual Age of Menarche: 9 Review of Systems Const All systems reviewed & are unremarkable except as noted in HPI and below Reports as per HPI and Reports no additional complaints GI Reports no additional complaints Reports no additional complaints Physical Exam GI Inspection: Yes normal to inspection Palpation (GI): Soft to palpation and nontender Assessment & Plan Assessment & Plan (1) Early stage of : Code(s): Z34.90 - Encounter for supervision of normal , unspecified, unspecified trimester Plan: vitamin 1 tablet p.o. q.d.. Discussed with the patient the hCG rate of rise. Repeat hCG Q 48 hours till above 3500 and will repeat ultrasound then to document intrauterine . SAB/ectopic warnings given to the patient, she is to call or go to emergency room in case of abdominal pain, vaginal bleeding or any other concerns. Follow-up in 48 hours after hCG draw Orders: Orders HCG Quantitative 09/26/23 Z34.90 - Encounter for supervision of normal , unspecified, unspecified trimester Medications: New no.144-folic acid 400 mcg 1 tab PO DAILY 180 tabs 1RF 180 days Coding Level of Care Code Est Pt Level 3 (57818) Diagnoses Early stage of Z34.90
[2023-09-24 11:33] VITALS: BP 110/74; BMI 40.9
== END 2023-09-24 11:45 | disposition home or self-care (01) ==
LOC: HO.HWS 11:21
PROVIDERS: Visit Provider Obstetrics & Gynecology
DX: Z34.90 Encounter for supervision of normal pregnancy, unspecified, unspecified trimester (principal)
CPT/HCPCS: 99213

== ENCOUNTER 2023-09-26 08:51 | Outpatient (REF) | payer MEDICAID, SELFPAY ==
[2023-09-26 09:33] LABS: HCG Quantitative 1236 mIU/mL
== END 2023-09-26 08:52 | disposition home or self-care (01) ==
LOC: HO.LAB 08:51
PROVIDERS: Visit Provider Obstetrics & Gynecology
DX: Z34.90 Encounter for supervision of normal pregnancy, unspecified, unspecified trimester (principal)
CPT/HCPCS: 36415; 84702; 99212

== ENCOUNTER 2023-09-26 11:01 | Outpatient (AMB) | payer MEDICAID, SELFPAY ==
--- NOTE | 2023-09-26 11:18 | MHC.OFFVIS ---
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 The patient is doing well with no complaints, no pelvic/abdominal pain, no vaginal bleeding or spotting. 09/22 hCG= 156 09/24 hCG= 480 09/26 [id number] [facility] Medical History Cervical cancer screening Initial obstetric visit Hx of gestational diabetes in prior , currently Surgical History Hx of removal of neck cyst History of Family History Mother Hx of osteoporosis Father No problems noted. Maternal Grandmother No problems noted. Maternal Grandfather No problems noted. Maternal Grandmother No problems noted. Paternal Grandfather No problems noted. Household Members: Significant Other and Family Alcohol intake: current Alcohol intake frequency: a few times a week Substance Use Type: Marijuana service: No Current occupational status: unemployed Current occupational exposures/hazards: No Female Reproductive History Menstrual Age of Menarche: 9 Review of Systems Const All systems reviewed & are unremarkable except as noted in HPI and below Reports as per HPI and Reports no additional complaints GI Reports no additional complaints Reports no additional complaints Physical Exam Vital Signs: Last Vital Signs BP 116/70 09/26/23 11:24 BMI result Body Mass Index 40.9 GI Inspection: Yes normal to inspection Palpation (GI): Soft to palpation and nontender Assessment & Plan Assessment & Plan (1) Early stage of : Code(s): Z34.90 - Encounter for supervision of normal , unspecified, unspecified trimester Plan: Discussed with the patient the rate of rise for hCG over the last 4 days, above the minimum expected. Will order pelvic ultrasound to confirm IUP & rule out ectopic . SAB/ectopic warnings given to the patient, instructions given to patient to go to emergency room in case of pelvic pain and/or vaginal bleeding. vitamin 1 tablet p.o. q.d. All questions answered, the patient verbalized understanding Orders: Orders US OB pelvic and transvaginal 10/02/23 Z34.90 - Encounter for supervision of normal , unspecified, unspecified trimester Coding Level of Care Code Est Pt Level 3 (79454) Diagnoses Early stage of Z34.90
[2023-09-26 11:24] VITALS: BP 116/70; BMI 40.9
== END 2023-09-26 11:40 | disposition home or self-care (01) ==
LOC: HO.HWS 11:01
PROVIDERS: Visit Provider Obstetrics & Gynecology
DX: Z34.90 Encounter for supervision of normal pregnancy, unspecified, unspecified trimester (principal)
CPT/HCPCS: 99213

== ENCOUNTER 2023-10-02 09:55 | Outpatient (REF) | payer MEDICAID, SELFPAY ==
--- NOTE | ~2023-10-02 | US_ITS ---
EXAMINATION: US OBSTETRICAL ULTRASOUND CLINICAL INFORMATION: with pain COMPARISON: None available. LMP: 08/21/2023. Gestational age by maternal dates is 6 weeks 0 days. Estimated date of delivery by maternal dates is 08/21/2023. TECHNIQUE: Transabdominal and transvaginal imaging of pelvis was performed. FINDINGS: There is a single intrauterine gestational sac with visible yolk sac but no pole or cardiac activity.. There is no significant subchorionic hemorrhage or hematoma. There is a subtle hypoechoic area around the distal sac suspicious for small subchorionic bleed. Measures 1.7 x 0.5 x 3.1 cm. MATERNAL ADNEXA: The right maternal ovary measures 3.9 x 2.8 x 3.1 cm. There is corpus luteal cyst measuring 2.1 x 2.8 x 2.7 cm. Adjacent to the right ovary is a heterogeneous tubular structure with fluid within an no intrinsic vasculature. It measures 3.3 x 1.6 x 1.9 cm. Question hydrosalpinx or pyosalpinx The left maternal ovary measures 2.0 x 1.0 x 2.7 cm. No focal lesion seen. There is no significant maternal adnexal mass. No maternal pelvic ascites. US/US OB pelvic and transvaginal IMPRESSION: 1. Single intrauterine gestation with nonvisualization of pole or cardiac activity. 2. There is a corpus luteal cyst right ovary. 3. There is a small subchorionic bleed. 4. Questionable right hydrosalpinx or pyosalpinx.
== END 2023-10-02 09:56 | disposition home or self-care (01) ==
LOC: HO.US 09:55
PROVIDERS: Visit Provider Obstetrics & Gynecology
DX: Z34.91 Encounter for supervision of normal pregnancy, unspecified, first trimester (principal); Z3A.01 Less than 8 weeks gestation of pregnancy
CPT/HCPCS: 76801; 76817

== ENCOUNTER 2023-11-30 20:52 | Emergency (ER) | payer MEDICAID, SELFPAY ==
--- NOTE | ~2023-11-30 | US_ITS ---
EXAMINATION: US OBSTETRICAL CLINICAL INFORMATION: Vaginal bleeding. 13 weeks . Last menstrual period: 08/21/2023 (gestational age by LMP: 14 weeks and 3 days; estimated date of delivery by LMP: 05/27/2024). COMPARISON: Pelvic ultrasound from 10/02/2023. TECHNIQUE: Real-time ultrasound was performed transabdominally and transvaginally with M-mode Doppler. FINDINGS: Within the endometrial cavity there is a well formed gestation sac and yolk sac present. A pole is demonstrated with crown-rump length of 4.2, corresponding to a menstrual age of 11 weeks and 1 day. This yields an estimated date of delivery of 06/19/2024. pole is too small at this time for accurate anatomic survey. No heart beat is definitively demonstrated by M-mode Doppler. The placenta is fundal in position. Potential trace residual subchorionic blood products. The right ovary measures 3 x 2.5 x 2 cm and the left ovary measures 2.4 x 1.5 x 2.4 cm. Other significant findings: No demonstrated significant pelvic free fluid. US/US OB <= 14 weeks fetus IMPRESSION: Single intrauterine gestation with ultrasound gestational age of 11 weeks and 1 day (description with reported last menstrual period which would yield a gestational age of 14 weeks and 3 days). A heartbeat is not definitively demonstrated. These findings are suspicious for demise. However, recommend confirmation with serial quantitative beta-HCG levels and short-term follow-up ultrasound with YARDAGE CALLER. Potential trace residual subchorionic blood products. No evidence of interval expansion compared to exam from 10/02/2023.
[2023-11-30 21:08] VITALS: BP 123/54; PULSE 89; RESP 16; TEMP 36.9; O2SAT 98; BMI 39.2
[2023-11-30 21:41] LABS: MANUAL DIFF FLAG NO
[2023-11-30 21:42] LABS: Basophils Percent Auto 0.1 % (0-2); Eosinophils Absolute Auto 0.1 X10*3/uL (0.0-0.4); Eosinophils Percent Auto 2.1 % (0-4); Hemoglobin 9.2 g/dl (12.0-16.0); Imm Gran Abs Auto 0.01 X10*3/uL (0.00-0.03); Imm Gran Pct Auto 0.1 % (0.0-0.4); Lymphocytes Absolute Auto 1.8 X10*3/uL (1.2-4.9); Lymphocytes Percent Auto 27.5 % (20-40); Mean Corpuscular HGB Conc 30.7 g/dl (31.0-35.0); Mean Corpuscular Hemoglobin 22.6 pg (27.0-33.0); Mean Corpuscular Volume 73.7 fL (80.0-98.0); Mean Platelet Volume 10.2 fL (9.4-12.3); Monocytes Absolute Auto 0.5 X10*3/uL (0.1-1.2); Monocytes Percent Auto 7.5 % (2-11); Neutrophils Absolute Auto 4.2 x10*3/uL (2.0-8.3); Neutrophils Percent Auto 62.7 % (45-73); Platelet Count 375 X10*3/uL (160-400); Red Blood Count 4.07 X10*6/uL (4.20-5.50); Red Cell Distribution Width 18.3 % (11.0-16.0); White Blood Count 6.7 X10*3/uL (4.8-10.8)
[2023-11-30 21:47] LABS: Appearance Urine Clear; Color Urine Other; Glucose Urine UA Negative (Negative); Leukocyte Esterase Urine Negative (Negative); Nitrite Urine Negative (Negative); PH 6.5 (5.0-9.0); Specific Gravity - Urine <= 1.005 (1.005-1.025); UMIC TRIGGER UACC YES; Urine Blood Large (3+) (Negative); Urine Ketones Negative (Negative); Urine Protein Trace mg/dL (Neg-Trace)
[2023-11-30 21:48] LABS: Bacteria Urine None Seen (None Seen); Hyaline Casts Urine 0-2 /LPF (0-2); RBC Urine >20 /HPF (0-2); Squamous Epithelial Cell Urine 0-2 /HPF (0-2); WBC Urine 0-5 /HPF (0-5)
[2023-11-30 21:58] LABS: Alanine Aminotransferase 14 U/L (0-31); Albumin Level 3.9 g/dL (3.5-5.0); Alkaline Phosphatase 58 U/L (39-117); Anion Gap 14 (12-20); Aspartate Amino Transferase 14 U/L (5-31); Bilirubin Total 0.2 mg/dL (0.0-1.0); Blood Urea Nitrogen 7 mg/dL (9-16); Calcium 9.9 mg/dL (8.4-10.2); Carbon Dioxide 21 mmol/L (22-29); Chloride 107 mmol/L (96-108); Creatinine Clr Calc Pharmacy 152.3; Estimated Glomerular Filt Rate > 60; Glucose Random 89 mg/dL (60-115); Potassium 3.8 mmol/L (3.3-5.1); Sodium 138 mmol/L (135-145); Total Protein 7.5 g/dL (6.5-8.0)
[2023-11-30 22:39] LABS: HCG Quantitative 3403 mIU/mL
--- NOTE | 2023-11-30 22:50 | ED.GENADULT ---
HPI - General Adult General Chief complaint: Vaginal Bleeding Stated complaint: abd pain, 14 wks , vaginal bleeding Time Seen by Provider: 11/30/23 22:50 Source: patient Mode of arrival: ambulatory Limitations: no limitations History of Present Illness HPI narrative: Patient is a 28 year old assigned female at with a history of current presenting to the emergency department today with lower abdominal pain and vaginal bleeding. Patient states that starting earlier today she began to have lower abdominal pain with bleeding. Patient states that she has not established with an OBGYN since after she was seen by ours in September of 2023. Patient denies any dizziness, lightheadedness, nausea, vomiting, fever, chills, blurry vision, double vision, loss of vision, chest pain, difficulty breathing, shortness of breath, back pain, night sweats, pain with urination, increased urinary frequency, increased urinary urgency, blood in her stool, syncope or a near syncopal episode, recent trauma or falls, bowel incontinence, bladder incontinence, bowel retention, bladder retention, or any other complaints at this time. Onset (ago): hour(s) Location: abdomen Severity: mild Severity scale (1-10): 3 Relieving factors: none Exacerbating factors: none Associated symptoms: denies other symptoms Treatments prior to arrival: none Related Data Previous Rx's Medication Instructions Recorded ferrous sulfate 325 mg (65 mg 325 mg PO BID #60 tabs 01/07/21 iron) tablet,delayed release diphth,pertus(acell),tetanus 2.5 0.5 ml IM ONCE #0.5 mL 01/28/21 Lf unit-8 mcg-5 Lf/0.5 mL IM susp (Boostrix Tdap) ferrous sulfate 325 mg (65 mg 325 mg PO DAILY #30 tabs 09/22/23 iron) tablet vitamins no.144-folic 1 tab PO DAILY 180 days #180 tabs 09/24/23 acid 400 mcg chewable tablet metronidazole 500 mg tablet 500 mg PO BID 7 days #14 tabs 09/26/23 Allergies Allergy/AdvReac Type Severity Reaction Status Date / Time No Known Allergies Allergy Verified 11/30/23 21:06 [No Known Allergies*] Review of Systems Constitutional: Constitutional: Reports no additional constitutional complaints, Denies chills, Denies fever(s) and Denies night sweats Eyes: Eyes: Reports no additional eye complaints, Denies blurry vision, Denies change in vision, Denies diplopia, Denies eye discharge, Denies loss of vision and Denies eye pain ENT: Denies dizziness Cardiovascular: Cardiovascular: Reports no additional cardiovascular complaints, Denies chest pain, Denies lightheadedness, Denies Loss of Consciousness and Denies dyspnea Respiratory: Respiratory: Reports no additional respiratory complaints and Denies dyspnea Gastrointestinal: Gastrointestinal: Reports no additional gastrointestinal complaints, Reports abdominal pain, Denies melena, Denies hematochezia, Denies change in bowel habits and Denies change in stool character Genitourinary: Genitourinary: Denies hematuria, Denies urinary frequency, Denies dysuria, Denies urinary incontinence, Denies urinary hesitancy and Denies urinary urgency Comments: vaginal bleeding Musculoskeletal: Musculoskeletal: Reports no additional musculoskeletal complaints, Denies numbness and Denies tingling Neurologic: Denies dizziness, Denies loss of vision, Denies numbness and Denies tingling Psychiatric: Psychiatric: Reports no additional psychiatric complaints Endocrine: Endocrine: Reports no additional endocrine complaints Hematologic/Lymphatic: Hematologic/Lymphatic: Reports no additional hematologic/lymphatic complaints Allergic/Immunologic: Allergic/Immunologic: Reports no additional allergic/immunologic complaints PMFSH Past Medical History Attestation statement: The following information was validated with the patient. Source: old records reviewed and nursing notes reviewed Medical History Cervical cancer screening Initial obstetric visit Hx of gestational diabetes in prior , currently Surgical History Hx of removal of neck cyst History of Family History Family History Mother Hx of osteoporosis Father No problems noted. Maternal Grandmother No problems noted. Maternal Grandfather No problems noted. Maternal Grandmother No problems noted. Paternal Grandfather No problems noted. Social History Social History Household Members: Significant Other and Family Alcohol intake: current Alcohol intake frequency: a few times a week Substance Use Type: Marijuana Advance Directives: No Advance Directives Information Provided: No service: No Current occupational status: unemployed Current occupational exposures/hazards: No Physical Exam ED Vital Signs: Vital Signs - 24 hr 11/30/23 21:08 12/01/23 00:20 Temperature 98.4 F 98.6 F Pulse Rate 89 88 Respiratory Rate 16 18 Blood Pressure 123/54 L 139/78 Pulse Oximetry 98 100 Oxygen Delivery Method Room Air Room Air BMI result Body Mass Index 39.2 Const General: cooperative, no acute distress, alert and awake Nutritional Appearance: well nourished Orientation/consciousness: patient oriented x3 Limitations: no limitations HENMT Head: Yes normal to inspection and Yes atraumatic Ears: hearing grossly normal bilaterally and external ears normal General nose exam: Normal external nose present, no nasal discharge noted and no epistaxis Face and sinus: Yes normal facial exam, No abrasion and No laceration Mouth: Normal oral and palatal mucosa present, no drooling and no muffled voice Eyes General: appearance normal, both eyes and all related structures Periorbital: periorbital findings normal Eyelids: Yes eyelids normal Conjunctivae: conjunctivae normal Pupils: Equal, round and reactive pupils present EOM: EOMs intact bilaterally Neck Neck: Yes normal visual inspection, Yes full ROM and Yes no lymphadenopathy Chest Chest palpation & inspection: normal inspection of the chest Resp Effort & Inspection: normal respiratory effort and able to speak in complete sentences GI Inspection: Yes normal to inspection Palpation (GI): Soft to palpation, not firm, nontender and no guarding External Female Exam: normal external appearance Speculum Exam - Vagina: vaginal bleeding (minimal in canal) Speculum Exam - Cervix: normal appearance of the cervix OB/external & speculum: vaginal bleeding (minimal in canal) Neuro General: patient oriented x3 and moves all extremities Cranial nerves: Yes Equal, round and reactive pupils present Cognition (Neuro): normal cognition Motor exam (neuro): 5/5 motor strength present throughout Sensory Exam: Normal double simultaneous stimulation for sensation Coordination: [id number] test normal Extrem General: Yes normal to inspection, Yes full ROM and Yes capillary refill normal Psych Appearance: grossly normal Mental Status: mental status grossly normal Affect: normal affect Attitude: cooperative Thought process: Normal thought process present Thought content: Normal thought content present Insight: Good insight present (Psych) Medications Administered Discontinued Medications Generic Name Dose Route Start Last Admin Trade Name Freq PRN Reason Stop Dose Admin Morphine Sulfate 4 mg 12/01/23 00:15 12/01/23 00:33 Morphine Sulfate 4 Mg/Ml Cartridge IVPUSH 12/01/23 00:16 4 mg ONCE ONE Administration Protocol Ondansetron HCl 4 mg 12/01/23 00:15 12/01/23 00:33 Ondansetron Hcl 4 Mg/2 Ml Vial IVPUSH 12/01/23 00:16 4 mg ONCE ONE Administration Medical Decision Making Medical Decision Making [facility] Narrative: Patient is a 28 year old assigned female at with a history of current presenting to the emergency department today with lower abdominal pain and vaginal bleeding. Patient's physical exam was as noted in the physical exam portion of this note. Patient's blood work showed an HCG of 3,403. Patient is chronically anemic with a hgb of 9.2 and HCT of 30. The rest of the patient's labs were unremarkable. Patient's urine showed no acute process. Patient's US showed evidence consistent with demise. I consulted with Dr. Tello who recommended the patient follow up outpatient and be given strict return precautions. I explained my physical exam findings as well as all test results to the patient. I answered all questions asked by the patient. Patient received IV morphine which she stated helped her symptoms significantly. I stressed the importance of the patient taking her medication as prescribed. I stressed the importance of the patient following up with her OBGYN and primary care provider. I stressed the importance of the patient returning to the emergency department immediately if her symptoms were to worsen or if she were to develop any dizziness, shortness of breath, difficulty breathing, chest pain, blurry vision, loss of vision, nausea, vomiting, abdominal pain, fever, chills, back pain, or any other complaints. Patient verbalized agreement and understanding with this treatment plan and discharge. Differential Diagnosis Differential Diagnoses: The differential diagnosis associated with the presentation includes Missed Miscarriage Abdominal pain Vaginal bleeding Admission/Observation Consideration of admission/observation: Escalation of care including admission/observation considered Patient would have been admitted to the hospital had her work up had any findings where hospital admission was appropriate and her clinical presentation warranted hospital admission. Consult Healthcare Provider Management of the patient was discussed with: [employer] (spoke to the OBGYN as noted in the MDM Rationale portion of this note.) Lab Data [facility] Lab Attestation statement: I reviewed the patient's lab results. My interpretation of these results are in the MDM Rationale portion of this note. 11/30/23 21:36 11/30/23 21:36 Labs: Lab Results 11/30/23 Range/Units 21:36 WBC 6.7 (4.8-10.8) X10*3/uL RBC 4.07 L (4.20-5.50) X10*6/uL Hgb 9.2 L (12.0-16.0) g/dl Hct 30.0 L (37.0-47.0) % MCV 73.7 L (80.0-98.0) fL MCH 22.6 L (27.0-33.0) pg MCHC 30.7 L (31.0-35.0) g/dl RDW 18.3 H (11.0-16.0) % Plt Count 375 (160-400) X10*3/uL MPV 10.2 (9.4-12.3) fL Immature Gran % (Auto) 0.1 (0.0-0.4) % Neut % (Auto) 62.7 (45-73) % Lymph % (Auto) 27.5 (20-40) % [place] % (Auto) 7.5 (2-11) % Eos % (Auto) 2.1 (0-4) % Baso % (Auto) 0.1 (0-2) % Lymph # (Auto) 1.8 (1.2-4.9) X10*3/uL [place] # (Auto) 0.5 (0.1-1.2) X10*3/uL Eos # (Auto) 0.1 (0.0-0.4) X10*3/uL Baso # (Auto) 0.0 (0.0-0.2) X10*3/uL Abs Immat Gran (auto) 0.01 (0.00-0.03) X10*3/uL Absolute Neuts (auto) 4.2 (2.0-8.3) x10*3/uL Absolute Nucleated RBC 0.000 (0.0-0.012) X10*3/uL Nucleated RBC % (auto) 0.0 (0.0-0.2) /100WBC Sodium 138 (135-145) mmol/L Potassium 3.8 (3.3-5.1) mmol/L Chloride 107 (96-108) mmol/L Carbon Dioxide 21 L (22-29) mmol/L Anion Gap 14 (12-20) BUN 7 L (9-16) mg/dL Creatinine 0.57 (0.5-1.4) mg/dL Estim Creat Clear Calc 152.3 Estimated GFR > 60 Random Glucose 89 (60-115) mg/dL Calcium 9.9 D (8.4-10.2) mg/dL Total Bilirubin 0.2 (0.0-1.0) mg/dL AST 14 (5-31) U/L ALT 14 (0-31) U/L Alkaline Phosphatase 58 (39-117) U/L Total Protein 7.5 (6.5-8.0) g/dL Albumin 3.9 (3.5-5.0) g/dL Beta HCG, Quant 3403 mIU/mL Urine Color Other A Urine Appearance Clear Urine pH 6.5 (5.0-9.0) Ur Specific [place] <= 1.005 (1.005-1.025) Urine Protein Trace (Neg-Trace) mg/dL Urine Glucose (UA) Negative (Negative) mg/dL Urine Ketones Negative (Negative) mg/dL Urine Blood Large (3+) H (Negative) Urine Nitrite Negative (Negative) Ur Leukocyte Esterase Negative (Negative) Urine RBC >20 H (0-2) /HPF Urine WBC 0-5 (0-5) /HPF Ur Squamous Epith Cells 0-2 (0-2) /HPF Urine Bacteria None Seen (None Seen) Hyaline Casts 0-2 (0-2) /LPF Independent Interpretation I performed an independent interpretation of an: Ultrasound Interpretation: My interpretation is in agreement with the radiologist's impression of this imaging study. EXAMINATION: US OBSTETRICAL CLINICAL INFORMATION: Vaginal bleeding. 13 weeks . Last menstrual period: 08/21/2023 (gestational age by LMP: 14 weeks and 3 days; estimated date of delivery by LMP: 05/27/2024). COMPARISON: Pelvic ultrasound from 10/02/2023. TECHNIQUE: Real-time ultrasound was performed transabdominally and transvaginally with M-mode Doppler. FINDINGS: Within the endometrial cavity there is a well formed gestation sac and yolk sac present. A pole is demonstrated with crown-rump length of 4.2, corresponding to a menstrual age of 11 weeks and 1 day. This yields an estimated date of delivery of 06/19/2024. pole is too small at this time for accurate anatomic survey. No heart beat is definitively demonstrated by M-mode Doppler. The placenta is fundal in position. Potential trace residual subchorionic blood products. The right ovary measures 3 x 2.5 x 2 cm and the left ovary measures 2.4 x 1.5 x 2.4 cm. Other significant findings: No demonstrated significant pelvic free fluid. US/US OB <= 14 weeks fetus IMPRESSION: Single intrauterine gestation with ultrasound gestational age of 11 weeks and 1 day (description with reported last menstrual period which would yield a gestational age of 14 weeks and 3 days). A heartbeat is not definitively demonstrated. These findings are suspicious for demise. However, recommend confirmation with serial quantitative beta-HCG levels and short-term follow-up ultrasound with VISUAL LEAD. Potential trace residual subchorionic blood products. No evidence of interval expansion compared to exam from 10/02/2023. Dictated By: Pratik Finn DO Signed By: Electronically signed by Pratik Finn DO 12/01/23 0009 Radiology Impression Discussion of test interpretation with radiology: I have reviewed the radiologist's reading. Critical Care Time Critical Care Time Critical Care Time: Yes Total Critical Care Time: 55 Attestation: I spent 55 minutes of Critical Care Time with this patient. This does not include time spent on separately reported billable procedures. Discharge Plan Discharge Clinical Impression: Missed with demise before 20 completed weeks of gestation Patient Disposition: Home, Self-Care Instructions: Miscarriage (ED) Additional Instructions: Follow up with your OBGYN and your primary care provider. Return to the emergency department immediately if your symptoms worsen or if you develop any dizziness, shortness of breath, difficulty breathing, chest pain, blurry vision, loss of vision, nausea, vomiting, abdominal pain, fever, chills, back pain, or any other complaints. Prescriptions: No Action ferrous sulfate 325 mg (65 mg iron) tablet,delayed release (DR/EC) 325 mg PO BID Qty: 60 4RF Boostrix Tdap 2.5-8-5 Lf-mcg-Lf/0.5mL suspension 0.5 ml IM ONCE Qty: 0.5 0RF ferrous sulfate 325 mg (65 mg iron) tablet 325 mg PO DAILY Qty: 30 0RF metronidazole 500 mg tablet 500 mg PO BID 7 Days Qty: 14 0RF no.144-folic acid 400 mcg tablet,chewable 1 tab PO DAILY 180 Days Qty: 180 1RF Referrals: [facility] [Primary Care Provider] - Crow Tello MD [Physician] - (Call to establish and follow up with an OBGYN. ) Stand Alone Forms: Work/School Release Print Language: Welsh
[2023-12-01 00:20] VITALS: BP 139/78; PULSE 88; RESP 18; TEMP 37; O2SAT 100
--- NOTE | 2023-12-01 00:21 | MHC.EDTECH ---
Hourly rounds and vitals completed, patient is tearful and is having cramps, RN at bedside. Patient ambulated to bathroom with a steady gait.Call king in reach
[2023-12-01] MEDS: Morphine Sulfate 4 MG/ML CARTRIDGE IVPUSH (00:33)
[2023-12-01] MEDS: ondansetron HCL 4 MG/2 ML VIAL IVPUSH (00:33)
--- NOTE | 2023-12-01 00:48 | PC.NURSE ---
this rn placed 20g iv in R AC. pt medicated according to boo. this rn and ophthalmic medical assistant present at bedside during pelvic exam performed by aptricia conteh
--- NOTE | 2023-12-01 00:52 | MHC.EDTECH ---
Assisted AMANDA Garcia with a pelvic exam, swabs were obtained and sent to lab. Patient tolerated procedure well,vitas taken and patient is resting at this time,waiting to be discharged.Call king in reach
[2023-12-01 00:55] VITALS: BP 120/62; PULSE 77; RESP 16; TEMP 36.9; O2SAT 98
--- NOTE | 2023-12-01 01:15 | PC.NURSE ---
pt calm and cooperative. pt ambulatory at discharge pt provided with discharge packet. pt verbalized understanding of discharge plan. 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
--- NOTE | 2023-12-01 01:41 | PM.GYNCN ---
BUSINESS CONTINUITY COORDINATOR - CN: HPI Data of Consult Consult date: 12/01/23 Primary Care Provider: [facility] Consult Narrative Narrative: I was consulted on Amy Sandoval who is a 28 year old female presenting to the emergency room complaining of lower abdominal pain and mild vaginal bleeding. No other complaints. Rh positive cc:: CC: OB [facility] Past Medical History Medical History Cervical cancer screening Initial obstetric visit Hx of gestational diabetes in prior , currently Family History Family History Mother Hx of osteoporosis Father No problems noted. Maternal Grandmother No problems noted. Maternal Grandfather No problems noted. Maternal Grandmother No problems noted. Paternal Grandfather No problems noted. Surgical History Surgical History Hx of removal of neck cyst History of Social History Social History Household Members: Significant Other and Family Alcohol intake: current Alcohol intake frequency: a few times a week Smoked in Last 30 Days: No Use of substances other than those prescribed or required for medical reasons: No Substance Use Type: Marijuana Advance Directives: No Advance Directives Information Provided: No Patient : Yes service: No Current occupational status: unemployed Current occupational exposures/hazards: No Meds Allergies Allergy/AdvReac Type Severity Reaction Status Date / Time No Known Allergies Allergy Verified 11/30/23 21:06 [No Known Allergies*] BUSINESS CONTINUITY COORDINATOR Physical Exam Vitals Vital signs: Temp Pulse Resp BP Pulse Ox O2 Del Method 98.5 F 77 16 120/62 98 Room Air 12/01/23 00:55 12/01/23 00:55 12/01/23 00:55 12/01/23 00:55 12/01/23 00:55 12/01/23 00:55 BMI result Body Mass Index 39.2 Additional Comments: Reported by AMANDA García as the following: Minimal blood per vagina, no cervical motion tenderness, no uterine or adnexal tenderness, closed cervix BUSINESS CONTINUITY COORDINATOR - Results Labs 11/30/23 21:36 11/30/23 21:36 Labs: Short CBC 11/30/23 Range/Units 21:36 WBC 6.7 (4.8-10.8) X10*3/uL Hgb 9.2 L (12.0-16.0) g/dl Hct 30.0 L (37.0-47.0) % Plt Count 375 (160-400) X10*3/uL BMP 11/30/23 21:36 Sodium 138 Potassium 3.8 Chloride 107 Carbon Dioxide 21 L BUN 7 L Creatinine 0.57 Calcium 9.9 D Liver Function 11/30/23 Range/Units 21:36 Total Bilirubin 0.2 (0.0-1.0) mg/dL AST 14 (5-31) U/L ALT 14 (0-31) U/L Alkaline Phosphatase 58 (39-117) U/L Albumin 3.9 (3.5-5.0) g/dL Urine 11/30/23 Range/Units 21:36 Urine Color Other A Urine Appearance Clear Urine pH 6.5 (5.0-9.0) Ur Specific [place] <= 1.005 (1.005-1.025) Urine Protein Trace (Neg-Trace) mg/dL Urine Glucose (UA) Negative (Negative) mg/dL Imaging US - abdomen: Radiologist's impression: ITS Impressions Ultrasound 11/30/23 23:08 IMPRESSION: Single intrauterine gestation with ultrasound gestational age of 11 weeks and 1 day (description with reported last menstrual period which would yield a gestational age of 14 weeks and 3 days). A heartbeat is not definitively demonstrated. These findings are suspicious for demise. However, recommend confirmation with serial quantitative beta-HCG levels and short-term follow-up ultrasound with COMPUTER ASSEMBLER. Potential trace residual subchorionic blood products. No evidence of interval expansion compared to exam from 10/02/2023. Assessment and Plan (1) Early stage of : Status: Acute Recommended to AMANDA Cameron the following: GC/CT, BV panel, history collected. Early outpatient OBGYN follow-up for further management, instructions to be given to the patient to come back to the emergency room in case of persistent or worsening vaginal bleeding and /or pelvic cramping. I spent a total of 20 minutes reviewing the chart, communicating to the emergency room provider and documenting in the medical record
[2023-12-01 09:18] LABS: CT PCR NOT DETECTED (Not Detect.); NG PCR NOT DETECTED (Not Detect.)
[2023-12-01 10:51] LABS: BV Int Neg Control Negative (Negative); BV Int Pos Control Positive (Positive)
== END 2023-12-01 01:17 | disposition home or self-care (01) ==
PROVIDERS: Physician Assistant Medical; Emergency Provider Emergency Medicine
DX: O20.9 Hemorrhage in early pregnancy, unspecified (principal); Z3A.14 14 weeks gestation of pregnancy
CPT/HCPCS: 0353U; 36415; 76801; 80053; 81001; 84702; 85025; 87480; 87510; 87660; 96374; 96375; 99284; J2270; J2405

== ENCOUNTER → 2023-11-30 22:40 | Outpatient (BNV) | payer MEDICAID, SELFPAY | PROVIDERS: Emergency Provider Emergency Medicine; Visit Provider Obstetrics & Gynecology | DX: Z34.90 Encounter for supervision of normal pregnancy, unspecified, unspecified trimester (principal) | CPT/HCPCS: 99283 ==

== ENCOUNTER → 2024-11-03 09:15 | Outpatient (BNVA) | payer MEDICAID, SELFPAY | PROVIDERS: Visit Provider Nurse Practitioner Psychiatric/Mental Health ==

== ENCOUNTER 2024-11-03 09:59 | Emergency (ER) | payer MEDICAID, SELFPAY ==
--- NOTE | ~2024-11-03 | XR_ITS ---
EXAMINATION: Left foot and lumbar spine. INDICATION: Fall. Pain. COMPARISON: None. FINDINGS: LEFT FOOT 3 VIEWS: There is no visible acute fracture, dislocation or subluxation seen. No bony erosive changes seen. There ankle mortise and subtalar joints are normal. There is a small calcaneal heel and retrocalcaneal enthesophytes. The soft tissues are normal. LUMBAR SPINE 3 VIEWS: There is normal lumbar lordosis. The vertebral heights, alignment and disc heights are normal. No visible acute fracture, dislocation or subluxation seen. The soft tissue normal. SI joints are normal. XR/XR foot LT min 3V IMPRESSION: Unremarkable lumbar spine exam. Unremarkable left foot exam Electronically signed by: Carlos Reynolds MD 11/03/2024 01:36 PM EST
--- NOTE | ~2024-11-03 | XR_ITS ---
EXAMINATION: Left foot and lumbar spine. INDICATION: Fall. Pain. COMPARISON: None. FINDINGS: LEFT FOOT 3 VIEWS: There is no visible acute fracture, dislocation or subluxation seen. No bony erosive changes seen. There ankle mortise and subtalar joints are normal. There is a small calcaneal heel and retrocalcaneal enthesophytes. The soft tissues are normal. LUMBAR SPINE 3 VIEWS: There is normal lumbar lordosis. The vertebral heights, alignment and disc heights are normal. No visible acute fracture, dislocation or subluxation seen. The soft tissue normal. SI joints are normal. XR/XR lumbar spine 2-3V IMPRESSION: Unremarkable lumbar spine exam. Unremarkable left foot exam Electronically signed by: Carlos Reynolds MD 11/03/2024 01:36 PM EST
--- NOTE | ~2024-11-03 | CT_ITS ---
EXAMINATION: CT HEAD WITHOUT CONTRAST CLINICAL INFORMATION: Trauma COMPARISON: None available. TECHNIQUE: Contiguous axial imaging was performed from the skull base to vertex without intravenous administration of contrast. This CT examination was performed using dose optimization techniques as appropriate, variously including the following: *Automated exposure control *Adjustment of mA and/or kV according to patient size (this includes techniques or standardized protocols for targeted exams where dose is matched to indication/reason for exam; i.e. extremities or head) *Use of iterative reconstruction technique DLP: 591 mGy-cm FINDINGS: There is no acute intra-axial, extra-axial bleed, masses or midline shift. There is no acute infarction evolution. There is no edema. The aguila to white matter differentiation is maintained normal. The lateral ventricles are symmetrical in size and configuration without enlargement. Bone windows reveal no calvarial abnormality. There is no scalp soft tissue abnormality. Bilateral paranasal sinuses and mastoid air cells are well-aerated. CT/CT head/brain wo IV con IMPRESSION: No acute intracranial process seen. Electronically signed by: Carlos Reynolds MD 11/03/2024 03:13 PM [facility]
[2024-11-03 10:05] VITALS: BP 119/61; PULSE 91; RESP 20; TEMP 36.8; O2SAT 98; BMI 38.4
--- NOTE | 2024-11-03 12:51 | ED_ITS ---
HPI - Anxiety General Chief Complaint: Anxiety Stated Complaint: Anxiety Depression Time Seen by Provider: 11/03/24 12:48 Source: patient and old records reviewed Mode of arrival: ambulatory Limitations: no limitations History of Present Illness ED Provider: AL CÁRDENAS narrative: 29 yo female with PMH of ETOH use disorder here with c/o no prior seizures, drinks about a sleeve of nips a day for the past week. She denies SI. She tells me she has increasing anxiety and depression. Admits to recent falls injurying head and tailbone along with L foot. She notes she wants to go to detox. She reports feeling safe at home denies DV issues. MD complaint: anxiety and other Onset (ago): week(s) Symptoms: other Severity: moderate Quality: constant Place: home History of similar episodes: Yes Provoking factors: emotional stress Relieving factors: nothing Exacerbating factors: other (ETOH abuse) Associated symptoms: other (falls with low back pain, headaches, L foot pain) Related Data Previous Rx's ?Medication ?Instructions ?Recorded ferrous sulfate 325 mg (65 mg 325 mg PO BID #60 tabs 01/07/21 iron) tablet,delayed release diphth,pertus(acell),tetanus 2.5 0.5 ml IM ONCE #0.5 mL 01/28/21 Lf unit-8 mcg-5 Lf/0.5 mL IM susp (Boostrix Tdap) ferrous sulfate 325 mg (65 mg 325 mg PO DAILY #30 tabs 09/22/23 iron) tablet vitamins no.144-folic 1 tab PO DAILY 180 days #180 tabs 09/24/23 acid 400 mcg chewable tablet metronidazole 500 mg tablet 500 mg PO BID 7 days #14 tabs 09/26/23 Allergies Allergy/AdvReac Type Severity Reaction Status Date / Time No Known Allergies Allergy Verified 11/03/24 10:07 [No Known Allergies*] Review of Systems 2 Review of Systems: Constitutional : No Fever, No Chills ENT/Mouth : No Ear Pain, No Nasal Congestion, No sore throat Eyes: No Eye Pain, No Swelling, No Redness Cardiovascular : No Chest Pain, No SOB Respiratory : No Cough, No Sputum, No Dyspnea Gastrointestinal : No Nausea, No Vomiting, No Diarrhea, No Hematochezia, No Melena Genitourinary : No Dysuria, No Urinary Frequency, No Hematuria Musculoskeletal : No Myalgias, pos back pain, pos joint pain Skin : No Skin Lesions, No rash Neuro : No Weakness, No Numbness, No Paresthesias, No Dizziness, pos Headache Psych : positive Anxiety, positive Depression, no SI/HI Heme/Lymph: No Lymphadenopathy Endocrine : No Polyuria, No Polydipsia All other systems reviewed and are negative [facility] Past Medical History Attestation statement: The following information was validated with the patient. Source: old records reviewed Medical History Cervical cancer screening Initial obstetric visit Hx of gestational diabetes in prior , currently Surgical History Hx of removal of neck cyst History of Family History Family History Mother Hx of osteoporosis Father No problems noted. Maternal Grandmother No problems noted. Maternal Grandfather No problems noted. Maternal Grandmother No problems noted. Paternal Grandfather No problems noted. Social History Social History Household Members: Significant Other and Family Alcohol intake: current Alcohol intake frequency: a few times a week Substance Use Type: Marijuana Advance Directives: No Advance Directives Information Provided: Yes service: No Current occupational status: unemployed Current occupational exposures/hazards: No Physical Exam 2 Vital Signs: Vital Signs: Last Vital Signs Temp 98.2 F 11/03/24 10:05 Pulse 91 11/03/24 10:05 Resp 20 11/03/24 10:05 BP 119/61 11/03/24 10:05 Pulse Ox 98 11/03/24 10:05 O2 Del Method Room Air 11/03/24 10:05 BMI result Body Mass Index 38.4 Appearance: Alert. Oriented X3. No acute distress. Eyes: Pupils equal, round and reactive to light. ENT: Pharynx normal. L forehead small contusion Neck: Normal inspection. Neck supple. CVS: Normal heart rate and rhythm. Pulses normal. Respiratory: No respiratory distress. Breath sounds normal. Abdomen: Soft and nontender. Back: no midline ttp has lower tailbone pain Skin: Skin warm and dry. Normal skin color. Normal skin turgor. Extremities: No lower extremity edema. L foot small bruise noted near first MTP Neuro: Oriented X 3. No motor deficit. No sensory deficit. Medical Decision Making Medical Decision Making [facility] Narrative: 29 yo female with PMH of ETOH use disorder no prior withdrawal with recent falls at this time xray of foot and low back along with CT head for trauma, labs and addiction medicine consult ordered she reports feeling safe at home. Differential Diagnosis Differential Diagnoses: The differential diagnosis associated with the presentation includes trauma, anxiety, ETOH use disorder Admission/Observation Consideration of admission/observation: Escalation of care including admission/observation considered physician observation started at 130pm pending addiction medicine Consult Healthcare Provider Management of the patient was discussed with: Behavioral Health Provider Lab Data [facility] Lab Attestation statement: I reviewed the patient's lab results. 11/03/24 13:34 11/03/24 13:34 Labs: Lab Results 11/03/24 Range/Units 13:34 WBC 4.3 L (4.8-10.8) X10*3/uL RBC 3.93 L (4.20-5.50) X10*6/uL Hgb 8.4 L (12.0-16.0) g/dl Hct 28.9 L (37.0-47.0) % MCV 73.5 L (80.0-98.0) fL MCH 21.4 L (27.0-33.0) pg MCHC 29.1 L (31.0-35.0) g/dl RDW 17.6 H (11.0-16.0) % Plt Count 385 (160-400) X10*3/uL MPV 9.6 (9.4-12.3) fL Immature Gran % (Auto) 0.2 (0.0-0.4) % Neut % (Auto) 60.1 (45-73) % Lymph % (Auto) 26.6 (20-40) % [place] % (Auto) 9.6 (2-11) % Eos % (Auto) 2.8 (0-4) % Baso % (Auto) 0.7 (0-2) % Lymph # (Auto) 1.1 L (1.2-4.9) X10*3/uL [place] # (Auto) 0.4 (0.1-1.2) X10*3/uL Eos # (Auto) 0.1 (0.0-0.4) X10*3/uL Baso # (Auto) 0.0 (0.0-0.2) X10*3/uL Abs Immat Gran (auto) 0.01 (0.00-0.03) X10*3/uL Absolute Neuts (auto) 2.6 (2.0-8.3) x10*3/uL Absolute Nucleated RBC 0.000 (0.0-0.012) X10*3/uL Nucleated RBC % (auto) 0.0 (0.0-0.2) /100WBC Sodium 142 (135-145) mmol/L Potassium 3.3 (3.3-5.1) mmol/L Chloride 112 H (96-108) mmol/L Carbon Dioxide 23 (22-29) mmol/L Anion Gap 10 L (12-20) BUN 6 L (9-16) mg/dL Creatinine 0.57 (0.5-1.4) mg/dL Estim Creat Clear Calc 137.5 Estimated GFR > 60 Random Glucose 107 (60-115) mg/dL Calcium 8.3 L D (8.4-10.2) mg/dL Magnesium 1.6 (1.6-2.6) mg/dL Total Bilirubin 0.3 (0.0-1.0) mg/dL Direct Bilirubin 0.1 (0.0-0.5) mg/dL AST 48 H (5-31) U/L ALT 28 (0-31) U/L Alkaline Phosphatase 66 (39-117) U/L Total Protein 7.0 (6.5-8.0) g/dL Albumin 3.7 (3.5-5.0) g/dL Beta HCG, Quant < 2 mIU/mL Ethyl Alcohol 67 mg/dL Independent Interpretation I performed an independent interpretation of an: Plain X-Ray (no fracture) and CT Scan (no ICH) Radiology Impression Discussion of test interpretation with radiology: I have reviewed the radiologist's reading. External Record Review External record reviewed: Outpatient record Discharge Plan Discharge Clinical Impression: Alcohol use disorder Patient Disposition: Still a Patient Prescriptions: No Action ferrous sulfate 325 mg (65 mg iron) tablet,delayed release (DR/EC) 325 mg PO BID Qty: 60 4RF Boostrix Tdap 2.5-8-5 Lf-mcg-Lf/0.5mL suspension 0.5 ml IM ONCE Qty: 0.5 0RF ferrous sulfate 325 mg (65 mg iron) tablet 325 mg PO DAILY Qty: 30 0RF metronidazole 500 mg tablet 500 mg PO BID 7 Days Qty: 14 0RF no.144-folic acid 400 mcg tablet,chewable 1 tab PO DAILY 180 Days Qty: 180 1RF Print Language: Citizen Of [place]
--- NOTE | 2024-11-03 13:21 | PC.NURSE ---
patient presents to ED with increased depression and anxiety, patient states she has been feeling very anxious. patient states she drinks about a sleeve of nips a day (10 bottles - 50ml ea). patient denies SI/HI, patient is tearful during assessment. states she fell 2 weeks ago and has been having tail bone pain, patient also states she fell down the stairs 2-3 days ago, does not remember the event. patient endorses headache and anxiety. patient noted to have superficial scrape to left side of face above eye brow. patient changed into hospital attire, belongings secured, patient has cell phone with her. patient states she wants detox
[2024-11-03 13:39] LABS: MANUAL DIFF FLAG NO
[2024-11-03 13:48] LABS: Basophils Percent Auto 0.7 % (0-2); Eosinophils Absolute Auto 0.1 X10*3/uL (0.0-0.4); Eosinophils Percent Auto 2.8 % (0-4); Hematocrit 28.9 % (37.0-47.0); Hemoglobin 8.4 g/dl (12.0-16.0); Imm Gran Abs Auto 0.01 X10*3/uL (0.00-0.03); Imm Gran Pct Auto 0.2 % (0.0-0.4); Lymphocytes Absolute Auto 1.1 X10*3/uL (1.2-4.9); Lymphocytes Percent Auto 26.6 % (20-40); Mean Corpuscular HGB Conc 29.1 g/dl (31.0-35.0); Mean Corpuscular Hemoglobin 21.4 pg (27.0-33.0); Mean Corpuscular Volume 73.5 fL (80.0-98.0); Mean Platelet Volume 9.6 fL (9.4-12.3); Monocytes Absolute Auto 0.4 X10*3/uL (0.1-1.2); Monocytes Percent Auto 9.6 % (2-11); Neutrophils Absolute Auto 2.6 x10*3/uL (2.0-8.3); Neutrophils Percent Auto 60.1 % (45-73); Platelet Count 385 X10*3/uL (160-400); Red Blood Count 3.93 X10*6/uL (4.20-5.50); Red Cell Distribution Width 17.6 % (11.0-16.0); White Blood Count 4.3 X10*3/uL (4.8-10.8)
[2024-11-03 13:55] LABS: Alanine Aminotransferase 28 U/L (0-31); Albumin Level 3.7 g/dL (3.5-5.0); Alkaline Phosphatase 66 U/L (39-117); Anion Gap 10 (12-20); Aspartate Amino Transferase 48 U/L (5-31); Bilirubin Direct 0.1 mg/dL (0.0-0.5); Bilirubin Total 0.3 mg/dL (0.0-1.0); Blood Urea Nitrogen 6 mg/dL (9-16); Calcium 8.3 mg/dL (8.4-10.2); Carbon Dioxide 23 mmol/L (22-29); Chloride 112 mmol/L (96-108); Creatinine Clr Calc Pharmacy 137.5; Estimated Glomerular Filt Rate > 60; Ethanol 67 mg/dL; Glucose Random 107 mg/dL (60-115); Magnesium 1.6 mg/dL (1.6-2.6); Potassium 3.3 mmol/L (3.3-5.1); Sodium 142 mmol/L (135-145)
[2024-11-03 14:57] LABS: HCG Quantitative < 2 mIU/mL
[2024-11-03] MEDS: Ibuprofen 600 MG TABLET PO (15:21)
[2024-11-03] MEDS: Acetaminophen 325 MG TABLET 650 MG PO (15:21)
[2024-11-03 15:56] LABS: Amphetamine Screen Urine Not Detected (Not Detect); Barbiturates, Urine Not Detected (Not Detect); Benzodiazepines Screen Urine Not Detected (Not Detect); Buprenorphine Scr Not Detected (Not Detect); Cannabinoid Screen Urine Not Detected (Not Detect); Cocaine Screen Urine Not Detected (Not Detect); Fentanyl, urine Not Detected (Not Detect); Methadone Screen, Urine Not Detected (Not Detect); Opiate Screen Urine Not Detected (Not Detect); Oxycodone Screen Urine Not Detected (Not Detect); Phencyclidine Screen Urine Not Detected (Not Detect)
[2024-11-03 17:37] VITALS: BP 140/89; PULSE 68; RESP 18; TEMP 36.8; O2SAT 100
[2024-11-03 19:34] VITALS: BP 129/74; PULSE 63; RESP 16; TEMP 36.8; O2SAT 97
[2024-11-03 20:05] VITALS: BP 129/76; PULSE 63; RESP 16; TEMP 36.8; O2SAT 97
== END 2024-11-03 20:07 | disposition home or self-care (01) ==
PROVIDERS: Emergency Medicine; Emergency Provider Emergency Medicine
DX: F10.180 Alcohol abuse with alcohol-induced anxiety disorder (principal); F33.1 Major depressive disorder, recurrent, moderate; Y90.3 Blood alcohol level of 60-79 mg/100 ml; M54.50 Low back pain, unspecified; R51.9 Headache, unspecified; M79.672 Pain in left foot; F12.90 Cannabis use, unspecified, uncomplicated; Z91.81 History of falling; Z71.41 Alcohol abuse counseling and surveillance of alcoholic; Z51.81 Encounter for therapeutic drug level monitoring; Z79.899 Other long term (current) drug therapy
CPT/HCPCS: 36415; 70450; 72100; 73630; 80048; 80076; 80307; 83735; 84702; 85025; 99285; S9485

== ENCOUNTER → 2024-11-03 13:02 | Outpatient (BNV) | payer MEDICAID, SELFPAY | PROVIDERS: Emergency Provider Emergency Medicine; Visit Provider Radiology Diagnostic Radiology | DX: M79.672 Pain in left foot (principal); S09.90XA Unspecified injury of head, initial encounter; M54.9 Dorsalgia, unspecified | CPT/HCPCS: 70450; 72100; 73630 ==

== ENCOUNTER 2025-04-23 10:32 | Emergency (ER) | payer MEDICAID, SELFPAY ==
[2025-04-23 10:53] VITALS: BP 110/62; PULSE 93; RESP 18; TEMP 36.8; O2SAT 100; BMI 38.6
[2025-04-23 11:15] LABS: MANUAL DIFF FLAG NO
[2025-04-23 11:18] LABS: Appearance Urine Clear; Color Urine Dark Yellow; Glucose Urine UA Negative (Negative); Leukocyte Esterase Urine Negative (Negative); Nitrite Urine Negative (Negative); Specific Gravity - Urine 1.025 (1.005-1.025); UMIC TRIGGER UACC YES; Urine Blood Negative (Negative); Urine Ketones 15 mg/dL (Negative); Urine Protein 30 (1+) mg/dL (Neg-Trace)
[2025-04-23 11:19] LABS: Basophils Percent Auto 0.4 % (0-2); Eosinophils Absolute Auto 0.1 X10*3/uL (0.0-0.4); Eosinophils Percent Auto 1.5 % (0-4); Hematocrit 32.3 % (37.0-47.0); Hemoglobin 10.9 g/dl (12.0-16.0); Imm Gran Abs Auto 0.03 X10*3/uL (0.00-0.03); Imm Gran Pct Auto 0.6 % (0.0-0.4); Lymphocytes Absolute Auto 0.6 X10*3/uL (1.2-4.9); Lymphocytes Percent Auto 12.3 % (20-40); Mean Corpuscular HGB Conc 33.7 g/dl (31.0-35.0); Mean Corpuscular Hemoglobin 29.8 pg (27.0-33.0); Mean Corpuscular Volume 88.3 fL (80.0-98.0); Mean Platelet Volume 10.4 fL (9.4-12.3); Monocytes Absolute Auto 0.3 X10*3/uL (0.1-1.2); Monocytes Percent Auto 6.9 % (2-11); Neutrophils Absolute Auto 3.6 x10*3/uL (2.0-8.3); Neutrophils Percent Auto 78.3 % (45-73); Platelet Count 228 X10*3/uL (160-400); Red Blood Count 3.66 X10*6/uL (4.20-5.50); Red Cell Distribution Width 13.4 % (11.0-16.0); White Blood Count 4.6 X10*3/uL (4.8-10.8)
[2025-04-23 11:21] LABS: Bacteria Urine None Seen (None Seen); Hyaline Casts Urine 0-2 /LPF (0-2); RBC Urine 0-2 /HPF (0-2); WBC Urine 0-5 /HPF (0-5)
[2025-04-23 11:30] LABS: Anion Gap 11 (12-20); Blood Urea Nitrogen 5 mg/dL (9-16); Calcium 9.3 mg/dL (8.4-10.2); Carbon Dioxide 22 mmol/L (22-29); Chloride 108 mmol/L (96-108); Creatinine Clr Calc Pharmacy 210.4; Estimated Glomerular Filt Rate > 60; Glucose Random 80 mg/dL (60-115); Magnesium 1.5 mg/dL (1.6-2.6); Potassium 3.5 mmol/L (3.3-5.1); Sodium 137 mmol/L (135-145)
[2025-04-23 11:55] LABS: Influenza A PCR NEGATIVE (Negative); Influenza B PCR NEGATIVE (Negative); Resp Syncy Virus RNA Qual PCR NEGATIVE (Negative); SARS COV2 PCR INHOUSE NEGATIVE (Negative)
--- NOTE | 2025-04-23 12:09 | ED.NAVMDI ---
HPI - Nausea/Vomiting/Diarrhea General Chief complaint: Nausea/Vomiting/Diarrhea Stated complaint: Vomiting, diarrhea, headache Time Seen by Provider: 04/23/25 11:28 Source: patient Mode of arrival: ambulatory Limitations: no limitations History of Present Illness HPI Narrative: This is 29 years old the patient 24 weeks gestation plain of nausea vomiting body aches. She states that she is on antibiotic for UTI. She denies any vaginal bleeding she denies any abdominal pain at this time MD elicited complaint: nausea and vomiting Onset (ago): day(s) (3) Description of diarrhea: watery Associated nausea: Yes Associated abdominal pain: No Related Data Previous Rx's ?Medication ?Instructions ?Recorded ferrous sulfate 325 mg (65 mg 325 mg PO BID #60 tabs 01/07/21 iron) tablet,delayed release diphth,pertus(acell),tetanus 2.5 0.5 ml IM ONCE #0.5 mL 01/28/21 Lf unit-8 mcg-5 Lf/0.5 mL IM susp (Boostrix Tdap) ferrous sulfate 325 mg (65 mg 325 mg PO DAILY #30 tabs 09/22/23 iron) tablet vitamins no.144-folic 1 tab PO DAILY 180 days #180 tabs 09/24/23 acid 400 mcg chewable tablet metronidazole 500 mg tablet 500 mg PO BID 7 days #14 tabs 09/26/23 Allergies Allergy/AdvReac Type Severity Reaction Status Date / Time No Known Allergies (No Known Allergy Verified 04/23/25 10:54 Allergies*) Review of Systems ENT: Reports system reviewed and no additional complaints, except as documented Cardiovascular: Cardiovascular: Reports no additional cardiovascular complaints Gastrointestinal: Gastrointestinal: Reports nausea and Reports vomiting PMFSH Past Medical History Attestation statement: The following information was validated with the patient. Medical History Cervical cancer screening Initial obstetric visit Hx of gestational diabetes in prior , currently Surgical History Hx of removal of neck cyst History of Family History Family History Mother Hx of osteoporosis Father No problems noted. Maternal Grandmother No problems noted. Maternal Grandfather No problems noted. Maternal Grandmother No problems noted. Paternal Grandfather No problems noted. Social History Social History Household Members: Significant Other and Family Alcohol intake: current Alcohol intake frequency: 3 or more drinks per day Alcohol type: hard liquor Smoked in Last 30 Days: No Use of substances other than those prescribed or required for medical reasons: No Substance Use Type: Marijuana Advance Directives: No Advance Directives Information Provided: No Do you have a plan to hurt others: No Plan Patient : Yes service: No Current occupational status: unemployed Current occupational exposures/hazards: No Physical Exam Vital Signs: Vital Signs: Last Vital Signs Temp 98.2 F 04/23/25 14:17 Pulse 93 04/23/25 14:17 Resp 18 04/23/25 14:17 BP 110/62 04/23/25 14:17 Pulse Ox 100 04/23/25 14:17 O2 Del Method Room Air 04/23/25 14:17 BMI result Body Mass Index 38.6 No acute distress looks well Const: Orientation/consciousness: oriented to person and patient oriented x3 Resp: Effort & Inspection: normal respiratory effort Auscultation: clear to auscultation bilaterally Cardio: Jugular venous distension: no JVD Rate: regular rate Rhythm: regular rhythm GI: Inspection: Yes normal to inspection Palpation (GI): Soft to palpation Auscultation: normal bowel sounds Skin: General skin exam: no rashes or lesions noted and elasticity normal Lesions: no lesions Rashes: no rashes Neuro: General: oriented to person and patient oriented x3 Course Reevaluation(s) Reevaluation #1: PATIENT IS DOING MUCH BETTER TOLERATING P.O. WELL SHE HAS NO ABDOMINAL PAIN NO VAGINAL BLEEDING STABLE VITAL SIGNS. MAGNESIUM IS LOW WE WILL GIVE HIM A DOSE OF IV MAGNESIUM. BEDSIDE ULTRASOUND DONE BABY VERY ACTIVE HEART RATE ABOUT 150. AT THIS POINT I WILL PLACE A CALL TO THE OB AT [facility] TO SEE IF THEY WANT TO SEE HERE FOR NONSTRESS TEST. SHE HAS FOLLOWED AT [facility] Time: 13:25 Reevaluation #2: CALLED PLACE TO [facility] ,WAITING FOR CALL BACK Time: 13:38 Reevaluation #3: SPOKE WITH OB DOCTOR JERROD ACCEPTED IN [facility],PT WILL GO WITH PRIVATE TRANSPORTATION,WILL NEED MONITORING Time: 14:07 Medications Administered Discontinued Medications Generic Name Dose Route Start Last Admin Trade Name Flora PRN Reason Stop Dose Admin Diphenhydramine HCl 12.5 mg 04/23/25 12:07 04/23/25 12:17 Diphenhydramine Hcl 50 Mg/Ml Vial IVPUSH 04/23/25 12:08 12.5 mg ONCE ONE Administration Sodium Chloride 1,000 mls @ 999 mls/hr 04/23/25 12:15 04/23/25 13:13 Ns IVCONT 04/23/25 13:15 Infused .Q1H1M CONNIE Infusion Magnesium Sulfate 2 gm in 50 mls @ 25 mls/hr 04/23/25 12:47 04/23/25 14:14 Magnesium Sulfate/H2o IV 04/23/25 14:46 Infused ONCE ONE Infusion Metoclopramide HCl 10 mg 04/23/25 12:07 04/23/25 12:18 Metoclopramide Hcl 10 Mg/2 Ml Vial IVPUSH 04/23/25 12:08 10 mg ONCE ONE Administration Medical Decision Making Medical Decision Making [facility] Narrative: Patient is here with nausea vomiting unable to keep anything down we will obtain blood work administer IV fluids antiemetic. She has no abdominal pain no vaginal bleeding. The patient is G4 P 2 AB1 Differential Diagnosis Differential Diagnoses: The differential diagnosis associated with the presentation includes Viral syndrome/gastroenteritis Consult Healthcare Provider Management of the patient was discussed with: Guitar Player dR JERROD Marr Lab Data [facility] Lab Attestation statement: I reviewed the patient's lab results. 04/23/25 11:05 04/23/25 11:05 Labs: Lab Results 04/23/25 04/23/25 Range/Units 11:05 11:09 WBC 4.6 L (4.8-10.8) X10*3/uL RBC 3.66 L (4.20-5.50) X10*6/uL Hgb 10.9 L D (12.0-16.0) g/dl Hct 32.3 L (37.0-47.0) % MCV 88.3 (80.0-98.0) fL MCH 29.8 (27.0-33.0) pg MCHC 33.7 (31.0-35.0) g/dl RDW 13.4 (11.0-16.0) % Plt Count 228 D (160-400) X10*3/uL MPV 10.4 (9.4-12.3) fL Immature Gran % (Auto) 0.6 H (0.0-0.4) % Neut % (Auto) 78.3 H (45-73) % Lymph % (Auto) 12.3 L (20-40) % Alexander % (Auto) 6.9 (2-11) % Eos % (Auto) 1.5 (0-4) % Baso % (Auto) 0.4 (0-2) % Lymph # (Auto) 0.6 L (1.2-4.9) X10*3/uL Alexander # (Auto) 0.3 (0.1-1.2) X10*3/uL Eos # (Auto) 0.1 (0.0-0.4) X10*3/uL Baso # (Auto) 0.0 (0.0-0.2) X10*3/uL Abs Immat Gran (auto) 0.03 (0.00-0.03) X10*3/uL Absolute Neuts (auto) 3.6 (2.0-8.3) x10*3/uL Absolute Nucleated RBC 0.000 (0.0-0.012) X10*3/uL Nucleated RBC % (auto) 0.0 (0.0-0.2) /100WBC Sodium 137 (135-145) mmol/L Potassium 3.5 (3.3-5.1) mmol/L Chloride 108 (96-108) mmol/L Carbon Dioxide 22 (22-29) mmol/L Anion Gap 11 L (12-20) BUN 5 L (9-16) mg/dL Creatinine 0.39 L (0.5-1.4) mg/dL Estim Creat Clear Calc 210.4 Estimated GFR > 60 Random Glucose 80 (60-115) mg/dL Calcium 9.3 D (8.4-10.2) mg/dL Magnesium 1.5 L (1.6-2.6) mg/dL Urine Color Dark Yellow Urine Appearance Clear Urine pH 6.0 (5.0-9.0) Ur Specific [place] 1.025 (1.005-1.025) Urine Protein 30 (1+) H (Neg-Trace) mg/dL Urine Glucose (UA) Negative (Negative) mg/dL Urine Ketones 15 (Negative) mg/dL Urine Blood Negative (Negative) Urine Nitrite Negative (Negative) Ur Leukocyte Esterase Negative (Negative) Urine RBC 0-2 (0-2) /HPF Urine WBC 0-5 (0-5) /HPF Ur Squamous Epith Cells 6-10 (0-2) /HPF Urine Bacteria None Seen (None Seen) Hyaline Casts 0-2 (0-2) /LPF Influenza Type A (PCR) NEGATIVE (Negative) Influenza Type B (PCR) NEGATIVE (Negative) RSV RNA Qual (PCR) NEGATIVE (Negative) SARS-CoV-2 RNA (RT-PCR) NEGATIVE (Negative) Independent Historian Clinical information obtained from an independent historian. History obtained from or confirmed by: Spouse Discharge Plan Discharge Clinical Impression: Hypomagnesemia Vomiting Qualifiers: Vomiting type: unspecified Nausea presence: with nausea Qualified Code(s): R11.2 - Nausea with vomiting, unspecified Qualifiers: Weeks of gestation: 24 weeks Qualified Code(s): Z3A.24 - 24 weeks gestation of Proteinuria Qualifiers: Proteinuria type: unspecified Qualified Code(s): R80.9 - Proteinuria, unspecified Patient Disposition: [facility] Transfer Details: [facility] VIA PRIVATE TRASPORTATION Instructions: Acute Nausea and Vomiting (DC) Prescriptions: No Action ferrous sulfate 325 mg (65 mg iron) tablet,delayed release (DR/EC) 325 mg PO BID Qty: 60 4RF Boostrix Tdap 2.5-8-5 Lf-mcg-Lf/0.5mL suspension 0.5 ml IM ONCE Qty: 0.5 0RF ferrous sulfate 325 mg (65 mg iron) tablet 325 mg PO DAILY Qty: 30 0RF metronidazole 500 mg tablet 500 mg PO BID 7 Days Qty: 14 0RF no.144-folic acid 400 mcg tablet,chewable 1 tab PO DAILY 180 Days Qty: 180 1RF Stand Alone Forms: Work/School Release Interventions: Acute Care Transfer Worksheet (ED) Last Done: 04/23/25 14:17 Discharge Date/Time: 04/23/25 14:35 Print Language: Serbian
[2025-04-23] MEDS: diphenhydrAMINE HCL 50 MG/ML VIAL 12.5 MG IVPUSH (12:17)
[2025-04-23] MEDS: 0.9 % Sodium Chloride 1,000 ML 999 ML IVCONT (12:18)
[2025-04-23] MEDS: Metoclopramide HCl 10 MG/2 ML VIAL IVPUSH (12:18)
--- OUTSIDE RECORDS SUMMARY | 2025-04-23 13:05 | XMS_ITS | Clinical Summary ---
Author Organization [facility] Address [address] [place] [address] Care Team Providers Care Table Worker Name Role Phone Unavailable Primary Care Provider Unavailabl e Social History Tobacco Use Types Packs/Day Years Used Date Smoking Tobacco: Never Assessed Comments Unknown Sex and Gender Information Value Date Recorded Sex Assigned at Not on file Legal Sex Female 5:45 AM EST Gender Identity Not on file Sexual Orientation Not on file Plan of Treatment Health Maintenance Due Date Last Done Comments DTaP,Tdap,and Td Vaccines (1 - Tdap) 2013 Hepatitis B Vaccines (1 of 3 - 19+ 3-dose series) 2013 Cervical Cancer Screening: P ap Smear 2015 COVID-19 Vaccine (2023-2 5 season) 2024 Influenza Vaccine (Season Ended) 2025 HIB Vaccines Aged Out No longer eligi ble based on patient's age to complete this topic HPV Vaccines Aged Out No longer eligi ble based on patient's age to complete this topic Hepatitis A Vaccines Aged Out No long er eligible based on patient's age to complete this topic IPV Vaccines Aged Out No longer eligi ble based on patient's age to complete this topic MMR Vaccines Aged Out No longer eligi ble based on patient's age to complete this topic Meningococcal ACWY Vaccine Aged Out N o longer eligible based on patient's age to complete this topic Meningococcal B Vaccine Aged Out No l onger eligible based on patient's age to complete this topic Pneumococcal Vaccine: Pediat rics (0 to 5 Years) and At-Risk Patients (6 to 64 Years) Aged Out No longer eligible b ased on patient's age to complete this topic RSV Immunization Patients Un celso 20 months Aged Out No longer eligible b ased on patient's age to complete this topic Varicella Vaccines Aged Out No longer eligible based on patient's age to complete this topic
[2025-04-23] MEDS: Magnesium Sulfate/H2O 2 GM/50 ML PIGGYBACK IV (13:13)
--- NOTE | 2025-04-23 14:15 | PC.NURSE ---
ok per MD Barton to give Mag over 1hr
[2025-04-23 14:17] VITALS: BP 110/62; PULSE 93; RESP 18; TEMP 36.8; O2SAT 100
== END 2025-04-23 14:35 | disposition short-term general hospital (02) ==
PROVIDERS: Emergency Provider Emergency Medicine
DX: O21.0 Mild hyperemesis gravidarum (principal); Z3A.24 24 weeks gestation of pregnancy; E83.42 Hypomagnesemia; M79.10 Myalgia, unspecified site; N39.0 Urinary tract infection, site not specified; R80.9 Proteinuria, unspecified; Z03.818 Encounter for observation for suspected exposure to other biological agents ruled out
CPT/HCPCS: 0241U; 80048; 81001; 83735; 85025; 96361; 96365; 96375; 99284; 99285; J1200; J2765; J3475